=== PATIENT | female | born 1985 | race Caucasian/White ===

== ENCOUNTER 2018-09-19 11:08 | Emergency (ER) | payer MEDICAID ==
[~2018-09-19] VITALS: Ht 157.5 cm; Wt 56.8 kg
[2018-09-19 11:28] LABS: GLUCOSE,POINT OF CARE 84 MG/DL (70-110)
[2018-09-19] MEDS ORDERED: PRENATAL PO (11:33)
[2018-09-19] MEDS ORDERED: PROM25 PO (11:35)
[2018-09-19] MEDS ORDERED: PYRI50 PO (11:35)
[2018-09-19] MEDS ORDERED: RANI50VI4 IM (11:35)
[2018-09-19] MEDS ORDERED: SODIUM CHLORIDE 0.9% 1,000 ML IV ONE (14:30)
[2018-09-19 14:42] LABS: BASOPHILS % (AUTO) 0.5 % (0.0-2.0); EOSINOPHILS % (AUTO) 2.7 % (1.0-6.0); HEMATOCRIT 38.3 % (36-46); HEMOGLOBIN 13.5 g/dL (12.0-16.0); LYMPHOCYTES # (AUTO) 1.9 K/uL (1.0-4.8); LYMPHOCYTES % (AUTO) 19.2 % (22.0-44.0); MEAN CORPUSCULAR HEMOGLOBIN 32.4 pg (26.0-34.0); MEAN CORPUSCULAR HGB CONC 35.3 G/dL (31.0-37.0); MEAN CORPUSCULAR VOLUME 92 fL (80-100); MONOCYTES # (AUTO) 0.5 K/uL (0.1-1.0); MONOCYTES % (AUTO) 5.5 % (2.0-9.0); NEUTROPHILS % (AUTO) 72.1 % (40.0-70.0); PLATELET COUNT (AUTO) 242 K/uL (150-450); RED BLOOD CELL COUNT(AUTO) 4.17 MIL/uL (4.00-5.20); RED CELL DISTRIBUTION WIDTH 12.6 % (11.5-14.5)
[2018-09-19 14:55] LABS: ANION GAP 12 mmol/L (8-16); CALCIUM, TOTAL 9.5 mg/dL (8.8-10.5); CARBON DIOXIDE 24 mmol/L (22-29); CHLORIDE 100 mmol/L (98-107); CREATININE 0.47 mg/dL (0.60-1.30); GLOMERULAR FILTR. RATE CALC > 60 mL/min (>60); GLUCOSE,RANDOM 77 mg/dL (70-110); POTASSIUM 3.9 mmol/L (3.5-5.1); SODIUM SERUM 136 mmol/L (136-145); UREA NITROGEN, BLOOD 12 mg/dL (7-18)
[2018-09-19 14:56] LABS: AMPHET/METH SCREEN,URINE NEGATIVE (NEGATIVE); BARBITURATE SCREEN, URINE NEGATIVE (NEGATIVE); BENZODIAZEPINES SCREEN,URINE NEGATIVE (NEGATIVE); CANNABINOID SCREEN,URINE NEGATIVE (NEGATIVE); COCAINE SCREEN,URINE NEGATIVE (NEGATIVE); METHADONE SCREEN, URINE NEGATIVE (NEGATIVE); OPIATE SCREEN,URINE NEGATIVE (NEGATIVE); PHENCYCLIDINE SCREEN,URINE NEGATIVE (NEGATIVE)
[2018-09-19 15:00] LABS: INR 0.9 (0.9-1.1); PROTHROMBIN TIME 9.2 SEC (9.4-11.6)
[2018-09-19 15:02] LABS: ALANINE AMINOTRANSFERASE 28 U/L (12-78); ALBUMIN 3.7 g/dL (3.4-5.0); ALKALINE PHOSPHATASE 52 U/L (46-116); ASPARTATE AMINOTRANSFERASE 19 U/L (15-37); BILIRUBIN,TOTAL 0.4 mg/dL (0.1-1.0); TOTAL PROTEIN, SERUM 8.1 g/dL (6.4-8.2)
[2018-09-19 15:19] LABS: APPEARANCE,URINE CLEAR (CLEAR); BILIRUBIN,URINE NEGATIVE (NEGATIVE); GLUCOSE, URINE (UA) NEGATIVE (NEGATIVE); KETONES,URINE NEGATIVE (NEGATIVE); LEUKOCYTE ESTERASE ,URINE NEGATIVE (NEGATIVE); NITRATE,URINE NEGATIVE (NEGATIVE); OCCULT BLOOD,URINE NEGATIVE (NEGATIVE); PROTEIN,URINE NEGATIVE (NEGATIVE); UROBILINOGEN,URINE 0.2 mg/dL (<=1.0)
[2018-09-19 15:31] LABS: BACTERIA,URINE None Seen /HPF (None Seen); RBC,URINE None Seen /HPF (0-2); SQUAMOUS EPITHELIAL CELL,UR Few /LPF (None Seen); WBC,URINE None Seen /HPF (0-5)
[2018-09-19 16:57] LABS: INFLUENZA TYPE A NEGATIVE FOR TYPE A (NEGATIVE); INFLUENZA TYPE B NEGATIVE FOR TYPE B (NEGATIVE)
[2018-09-19 17:09] VITALS: BP 136/66
== END 2018-09-19 17:34 | disposition left against medical advice (07) ==
LOC: EMS 11:10
DX: O26.892 Other specified pregnancy related conditions, second trimester (principal); R42 Dizziness and giddiness; R51 Headache; R10.30 Lower abdominal pain, unspecified; Z88.0 Allergy status to penicillin; Z88.1 Allergy status to other antibiotic agents; Z79.899 Other long term (current) drug therapy
CPT/HCPCS: 36415; 76700; 76805; 80053; 80307; 81001; 82962; 85025; 85610; 85730; 87804; 93005; 96360; 96361; 99284; J7030

== ENCOUNTER 2018-12-10 15:25 | Observation (INO) | payer OTHER ==
[~2018-12-10 15:25] MED LIST: PRENATAL PO; PROM25 PO; PYRI50 PO; RANI50VI4 IM
[2018-12-10 16:43] LABS: GLUCOMETER DEV NAME(LOC) 4S.; GLUCOSE,POINT OF CARE 117 MG/DL (70-110)
[2018-12-10 17:10] VITALS: BP 134/82
== END 2018-12-10 17:35 | disposition home or self-care (01) ==
LOC: 4S 15:25 → UNDOADMOB 15:25
PROVIDERS: ADMIT Obstetrics & Gynecology; ATTEND Obstetrics & Gynecology
DX: O24.419 Gestational diabetes mellitus in pregnancy, unspecified control (principal); Z3A.29 29 weeks gestation of pregnancy
CPT/HCPCS: 82962; G0378

== ENCOUNTER 2019-01-25 09:37 | Observation (INO) | payer OTHER ==
[~2019-01-25] VITALS: Ht 160 cm; Wt 90.3 kg
== END 2019-01-25 11:45 | disposition home or self-care (01) ==
LOC: 4S 09:44
PROVIDERS: ADMIT Obstetrics & Gynecology; ATTEND Obstetrics & Gynecology
DX: O24.419 Gestational diabetes mellitus in pregnancy, unspecified control (principal); Z3A.34 34 weeks gestation of pregnancy
CPT/HCPCS: 81002; G0378

== ENCOUNTER 2019-01-28 13:05 | Observation (INO) | payer OTHER ==
[~2019-01-28] VITALS: Ht 160 cm; Wt 90.3 kg
[2019-01-28 14:14] LABS: GLUCOMETER DEV NAME(LOC) 4S.; GLUCOSE,POINT OF CARE 120 MG/DL (70-110)
[2019-01-28 15:48] VITALS: BP 131/82
[2019-01-28] MEDS ORDERED: INSU100V3 SQ ×2 (18:19→18:20)
[2019-01-28] MEDS ORDERED: NPH,100V SQ ×2 (18:19)
== END 2019-01-28 15:00 | disposition home or self-care (01) ==
LOC: 4S 13:05
PROVIDERS: ADMIT Obstetrics & Gynecology; ATTEND Obstetrics & Gynecology
DX: O24.419 Gestational diabetes mellitus in pregnancy, unspecified control (principal); Z3A.34 34 weeks gestation of pregnancy
CPT/HCPCS: 81002; 82962; G0378

== ENCOUNTER 2019-02-25 16:38 | Emergency (ER) | payer OTHER ==
[~2019-02-25] VITALS: Ht 160 cm; Wt 86.4 kg
[~2019-02-25 16:38] MED LIST changes: +DSS100 PO; +FERR-89 PO; +IBUP-2071 PO; +PERCT PO; +PREN1TAB80 PO; -PRENATAL PO; -PROM25 PO; -PYRI50 PO; -RANI50VI4 IM
[2019-02-25] MEDS ORDERED: SODIUM CHLORIDE 0.9% 1,000 ML IV ONE ×2 (17:30→19:30)
[2019-02-25] MEDS ORDERED: ACETAMINOPHEN 325 MG TABLET PO ONE ×2 (17:30→18:15)
[2019-02-25 18:53] LABS: APPEARANCE,URINE CLEAR (CLEAR); BILIRUBIN,URINE NEGATIVE (NEGATIVE); GLUCOSE, URINE (UA) NEGATIVE (NEGATIVE); KETONES,URINE NEGATIVE (NEGATIVE); LEUKOCYTE ESTERASE ,URINE NEGATIVE (NEGATIVE); NITRATE,URINE NEGATIVE (NEGATIVE); OCCULT BLOOD,URINE TRACE (NEGATIVE); PH,URINE 6.5 (5.0-8.0); PROTEIN,URINE NEGATIVE (NEGATIVE); UROBILINOGEN,URINE 0.2 mg/dL (<=1.0)
[2019-02-25 18:54] LABS: BASOPHILS % (AUTO) 0.4 % (0.0-2.0); HEMATOCRIT 26.6 % (36-46); HEMOGLOBIN 8.9 g/dL (12.0-16.0); LYMPHOCYTES # (AUTO) 1.3 K/uL (1.0-4.8); LYMPHOCYTES % (AUTO) 11.5 % (22.0-44.0); MEAN CORPUSCULAR HEMOGLOBIN 31.5 pg (26.0-34.0); MEAN CORPUSCULAR HGB CONC 33.3 G/dL (31.0-37.0); MEAN CORPUSCULAR VOLUME 95 fL (80-100); MONOCYTES # (AUTO) 0.8 K/uL (0.1-1.0); MONOCYTES % (AUTO) 7.3 % (2.0-9.0); NEUTROPHILS # (AUTO) 8.8 K/uL (1.8-7.7); NEUTROPHILS % (AUTO) 78.8 % (40.0-70.0); PLATELET COUNT (AUTO) 319 K/uL (150-450); RED BLOOD CELL COUNT(AUTO) 2.81 MIL/uL (4.00-5.20); RED CELL DISTRIBUTION WIDTH 13.8 % (11.5-14.5)
[2019-02-25 19:02] LABS: BACTERIA,URINE None Seen /HPF (None Seen); RBC,URINE 0-2 /HPF (0-2); SQUAMOUS EPITHELIAL CELL,UR Few /LPF (None Seen); WBC,URINE 0-2 /HPF (0-5)
[2019-02-25 19:03] LABS: TRANSITIONAL EPI CELLS,URINE Rare /LPF (None Seen)
[2019-02-25 19:06] LABS: ANION GAP 10 mmol/L (8-16); CALCIUM, TOTAL 8.5 mg/dL (8.8-10.5); CARBON DIOXIDE 25 mmol/L (22-29); CHLORIDE 104 mmol/L (98-107); CREATININE 0.78 mg/dL (0.60-1.30); GLOMERULAR FILTR. RATE CALC > 60 mL/min (>60); GLUCOSE,RANDOM 79 mg/dL (70-110); SODIUM SERUM 139 mmol/L (136-145); UREA NITROGEN, BLOOD 10 mg/dL (7-18)
[2019-02-25 19:12] LABS: ALANINE AMINOTRANSFERASE 49 U/L (12-78); ALBUMIN 2.3 g/dL (3.4-5.0); ALKALINE PHOSPHATASE 116 U/L (46-116); ASPARTATE AMINOTRANSFERASE 22 U/L (15-37); BILIRUBIN,TOTAL 0.5 mg/dL (0.1-1.0); TOTAL PROTEIN, SERUM 6.8 g/dL (6.4-8.2)
[2019-02-25 19:14] LABS: LACTIC ACID 0.7 mmol/L (0.4-2.0)
[2019-02-25] MEDS ORDERED: CLINDAMYCIN 600 MG/D5% WATER 50 ML IV ONE (19:30)
[2019-02-25] MEDS ORDERED: KETOROLAC TROMETHAMINE 30 MG/ML VIAL IVP ONE (20:00)
[2019-02-25 21:51] VITALS: BP 132/76
== END 2019-02-25 21:54 | disposition home or self-care (01) ==
LOC: EMS 16:40
DX: L08.9 Local infection of the skin and subcutaneous tissue, unspecified (principal); R10.30 Lower abdominal pain, unspecified; Z88.1 Allergy status to other antibiotic agents
CPT/HCPCS: 36415; 71045; 80053; 81001; 83605; 85025; 87040; 96365; 96375; 99285; J1885; J3490; J7030

== ENCOUNTER 2020-07-10 09:43 | Emergency (ER) | payer OTHER ==
[~2020-07-10] VITALS: Ht 170.2 cm; Wt 77.3 kg
[2020-07-10] MEDS ORDERED: PROZ10 PO (10:12)
[2020-07-10] MEDS ORDERED: LAMO100 PO (10:12)
[2020-07-10] MEDS ORDERED: BUSP10TA23 PO (10:12)
[2020-07-10] MEDS ORDERED: ACETAMINOPHEN 500 MG TABLET PO ONE (11:15)
[2020-07-10] MEDS ORDERED: ONDANSETRON HCL 4 MG/2 ML VIAL IVP ONE (11:15)
[2020-07-10] MEDS ORDERED: SODIUM CHLORIDE 0.9% 500 ML IV ONE (11:15)
[2020-07-10 11:38] LABS: BASOPHILS % (AUTO) 1.1 % (0.0-2.0); EOSINOPHILS % (AUTO) 1.5 % (1.0-6.0); HEMATOCRIT 42.5 % (36-46); HEMOGLOBIN 14.8 g/dL (12.0-16.0); LYMPHOCYTES # (AUTO) 1.1 K/uL (1.0-4.8); LYMPHOCYTES % (AUTO) 20.9 % (22.0-44.0); MEAN CORPUSCULAR HEMOGLOBIN 32.8 pg (26.0-34.0); MEAN CORPUSCULAR HGB CONC 34.7 G/dL (31.0-37.0); MEAN CORPUSCULAR VOLUME 94 fL (80-100); MONOCYTES # (AUTO) 0.4 K/uL (0.1-1.0); MONOCYTES % (AUTO) 7.5 % (2.0-9.0); NEUTROPHILS # (AUTO) 3.7 K/uL (1.8-7.7); PLATELET COUNT (AUTO) 302 K/uL (150-450); RED BLOOD CELL COUNT(AUTO) 4.51 MIL/uL (4.00-5.20); RED CELL DISTRIBUTION WIDTH 12.3 % (11.5-14.5)
[2020-07-10 11:55] LABS: ANION GAP 5 mmol/L (8-16); CALCIUM, TOTAL 9.5 mg/dL (8.8-10.5); CARBON DIOXIDE 31 mmol/L (22-29); CHLORIDE 95 mmol/L (98-107); CREATININE 0.85 mg/dL (0.60-1.30); GLOMERULAR FILTR. RATE CALC > 60 mL/min (>60); GLUCOSE,RANDOM 118 mg/dL (70-110); POTASSIUM 3.7 mmol/L (3.5-5.1); SODIUM SERUM 131 mmol/L (136-145); UREA NITROGEN, BLOOD 11 mg/dL (7-18)
[2020-07-10 12:18] LABS: ALANINE AMINOTRANSFERASE 58 U/L (12-78); ALBUMIN 4.3 g/dL (3.4-5.0); ALKALINE PHOSPHATASE 70 U/L (46-116); ASPARTATE AMINOTRANSFERASE 51 U/L (15-37); BILIRUBIN,TOTAL 1.6 mg/dL (0.1-1.0); CREATINE KINASE, TOTAL ONLY 100 U/L (26-192); HCG,QUANTITATIVE < 1 mIU/mL (0-6); TOTAL PROTEIN, SERUM 8.7 g/dL (6.4-8.2)
[2020-07-10] MEDS ORDERED: METOCLOPRAMIDE HCL 5 MG/ML 2 ML VIAL IVP ONE (12:45)
[2020-07-10] MEDS ORDERED: DiphenhydrAMINE HCL 50 MG/ML VIAL IVP ONE (12:45)
[2020-07-10 12:46] LABS: APPEARANCE,URINE CLEAR (CLEAR); BILIRUBIN,URINE NEGATIVE (NEGATIVE); GLUCOSE, URINE (UA) NEGATIVE (NEGATIVE); KETONES,URINE NEGATIVE (NEGATIVE); LEUKOCYTE ESTERASE ,URINE NEGATIVE (NEGATIVE); NITRATE,URINE NEGATIVE (NEGATIVE); OCCULT BLOOD,URINE SMALL (NEGATIVE); PROTEIN,URINE TRACE (NEGATIVE)
[2020-07-10 12:52] LABS: AMPHET/METH SCREEN,URINE NEGATIVE (NEGATIVE); BARBITURATE SCREEN, URINE NEGATIVE (NEGATIVE); BENZODIAZEPINES SCREEN,URINE NEGATIVE (NEGATIVE); CANNABINOID SCREEN,URINE POSITIVE (NEGATIVE); COCAINE SCREEN,URINE NEGATIVE (NEGATIVE); METHADONE SCREEN, URINE NEGATIVE (NEGATIVE); OPIATE SCREEN,URINE NEGATIVE (NEGATIVE)
[2020-07-10 12:53] LABS: BACTERIA,URINE None Seen /HPF (None Seen); SQUAMOUS EPITHELIAL CELL,UR Moderate /LPF (None Seen); WBC,URINE 0-2 /HPF (0-5)
[2020-07-10 12:54] LABS: PHENCYCLIDINE SCREEN,URINE NEGATIVE (NEGATIVE)
[2020-07-10 14:19] VITALS: BP 143/101
== END 2020-07-10 14:24 | disposition home or self-care (01) ==
LOC: EMS 09:49
DX: R11.2 Nausea with vomiting, unspecified (principal); F31.9 Bipolar disorder, unspecified; F17.210 Nicotine dependence, cigarettes, uncomplicated; Z88.0 Allergy status to penicillin; Z88.1 Allergy status to other antibiotic agents; Z79.899 Other long term (current) drug therapy
CPT/HCPCS: 36415; 74176; 80053; 80307; 81001; 82550; 84702; 85025; 96361; 96374; 96375; 99285; G0480; J1200; J2405; J2765; J7040

== ENCOUNTER 2020-07-20 12:57 | Inpatient (IN) | payer MEDICAID, OTHER ==
[~2020-07-20] VITALS: Ht 157.5 cm; Wt 63.0 kg
[~2020-07-20 12:57] MED LIST changes: +BUSP10TA23 PO; -DSS100 PO; -FERR-89 PO; -IBUP-2071 PO; +LAMO100 PO; -PERCT PO; -PREN1TAB80 PO; +PROZ10 PO
[2020-07-20 14:26] LABS: AMPHET/METH SCREEN,URINE NEGATIVE (NEGATIVE); BARBITURATE SCREEN, URINE NEGATIVE (NEGATIVE); BENZODIAZEPINES SCREEN,URINE NEGATIVE (NEGATIVE); CANNABINOID SCREEN,URINE POSITIVE (NEGATIVE); COCAINE SCREEN,URINE NEGATIVE (NEGATIVE); METHADONE SCREEN, URINE NEGATIVE (NEGATIVE); OPIATE SCREEN,URINE NEGATIVE (NEGATIVE)
[2020-07-20 14:27] LABS: EOSINOPHILS % (AUTO) 0.2 % (1.0-6.0); HEMATOCRIT 44.4 % (36-46); HEMOGLOBIN 15.5 g/dL (12.0-16.0); LYMPHOCYTES # (AUTO) 1.6 K/uL (1.0-4.8); LYMPHOCYTES % (AUTO) 17.2 % (22.0-44.0); MEAN CORPUSCULAR HEMOGLOBIN 33.4 pg (26.0-34.0); MEAN CORPUSCULAR VOLUME 96 fL (80-100); MONOCYTES # (AUTO) 0.6 K/uL (0.1-1.0); MONOCYTES % (AUTO) 6.1 % (2.0-9.0); NEUTROPHILS # (AUTO) 6.9 K/uL (1.8-7.7); NEUTROPHILS % (AUTO) 75.5 % (40.0-70.0); PLATELET COUNT (AUTO) 306 K/uL (150-450); RED BLOOD CELL COUNT(AUTO) 4.65 MIL/uL (4.00-5.20); RED CELL DISTRIBUTION WIDTH 13.5 % (11.5-14.5)
[2020-07-20 14:28] LABS: PHENCYCLIDINE SCREEN,URINE NEGATIVE (NEGATIVE)
[2020-07-20 14:42] LABS: ANION GAP 10 mmol/L (8-16); CALCIUM, TOTAL 9.2 mg/dL (8.8-10.5); CARBON DIOXIDE 29 mmol/L (22-29); CHLORIDE 98 mmol/L (98-107); CREATININE 1.13 mg/dL (0.60-1.30); GLOMERULAR FILTR. RATE CALC 55 mL/min (>60); GLUCOSE,RANDOM 125 mg/dL (70-110); POTASSIUM 3.5 mmol/L (3.5-5.1); SODIUM SERUM 137 mmol/L (136-145); UREA NITROGEN, BLOOD 13 mg/dL (7-18)
[2020-07-20 14:48] LABS: ALANINE AMINOTRANSFERASE 38 U/L (12-78); ALBUMIN 4.3 g/dL (3.4-5.0); ALKALINE PHOSPHATASE 69 U/L (46-116); ASPARTATE AMINOTRANSFERASE 40 U/L (15-37); BILIRUBIN,TOTAL 1.4 mg/dL (0.1-1.0); TOTAL PROTEIN, SERUM 8.4 g/dL (6.4-8.2)
[2020-07-20 15:06] LABS: HCG,QUANTITATIVE < 1 mIU/mL (0-6)
[2020-07-20] MEDS ORDERED: LORazepam 2 MG TABLET PO ONE (16:15)
[2020-07-20 16:24] LABS: SALICYLATE < 2.8 mg/dL (2.8-20.0)
[2020-07-20 16:27] LABS: ACETAMINOPHEN < 2 mcg/mL (10-30)
[2020-07-20] MEDS ORDERED: SODIUM CHLORIDE 0.9% 1,000 ML IV ONE (16:45)
[2020-07-20 16:53] LABS: COVID AG,FIA SOURCE NASOPHARYNGEAL
[2020-07-20] MEDS ORDERED: LORazepam 2 MG TABLET PO PRN (17:15)
[2020-07-20] MEDS ORDERED: ONDANSETRON HCL 4 MG/2 ML VIAL IVP ONE (17:45)
[2020-07-20] MEDS ORDERED: CloNIDine HCL 0.2 MG TABLET PO ONE (21:45)
[2020-07-20] MEDS ORDERED: LABETALOL HCL 100 MG TABLET PO ONE (21:45)
[2020-07-21] MEDS: ZOLPIDEM TARTRATE 10 MG TABLET PO PRN ×2 (00:27→20:17)
[2020-07-21] MEDS ORDERED: PNEUMOCOCCAL VACCINE POLYVALENT 0.5 ML VIAL [PPSV23] IM ONE (04:15)
[2020-07-21] MEDS ORDERED: INFLUENZA VIRUS VACCINE QVS 2020-21 (6MO+)/PF 60 MCG/0.5 ML SYRINGE IM ONE (04:15)
[2020-07-21 08:21] LABS: CHOL/HDL RATIO 1.8 (3.9-5.7)
[2020-07-21 09:28] VITALS: BP 126/83
[2020-07-21] MEDS ORDERED: CYANOCOBALAMIN 1,000 MCG/ML VIAL IM ONE (10:00)
[2020-07-21] MEDS: DIVALPROEX SODIUM 500 MG DR TABLET PO SCH ×2 (10:23→20:17)
[2020-07-21] MEDS: FOLIC ACID 1 MG TABLET PO SCH (10:23)
[2020-07-21] MEDS: FLUoxetine HCL 20 MG CAPSULE PO SCH (10:24)
[2020-07-21] MEDS: MULTIVITAMINS WITH MINERALS, THERAPEUTIC TABLET PO SCH (10:24)
[2020-07-21] MEDS: THIAMINE 100 MG TABLET PO SCH ×2 (10:27→16:53)
[2020-07-21 10:28] VITALS: BP 126/83
[2020-07-21] MEDS: IBUPROFEN 400 MG TABLET PO PRN (10:28)
[2020-07-21 14:36] VITALS: BP 126/83
[2020-07-21 16:14] VITALS: BP 145/94
[2020-07-21] MEDS ORDERED: MAGNESIUM HYDROXIDE SUSPENSION 30 ML UDCUP PO PRN (16:15)
[2020-07-21] MEDS ORDERED: MAG HYDROX/AL HYDROX/SIMETH ES 30 ML SUSPENSION UDCUP PO PRN (16:15)
[2020-07-21] MEDS ORDERED: IBUPROFEN 400 MG TABLET PO PRN (16:15)
[2020-07-21] MEDS ORDERED: GuaiFENesin/D-METHORPHAN [SUGAR-FREE] 200-20MG/10 ML SYRUP UDCUP PO PRN (16:15)
[2020-07-21] MEDS ORDERED: CloNIDine HCL 0.1 MG TABLET PO PRN (16:15)
[2020-07-21] MEDS ORDERED: ALBUTEROL SULFATE HFA 90 MCG/PUFF 8 GM INHALER IH PRN (16:15)
[2020-07-21] MEDS ORDERED: PETROLATUM,WHITE 28 GM JELLY TP PRN (16:15)
[2020-07-21] MEDS ORDERED: DOCUSATE SODIUM 100 MG CAPSULE PO PRN (16:15)
[2020-07-21] MEDS ORDERED: LOPERAMIDE HCL 2 MG CAPSULE PO PRN (16:15)
[2020-07-21] MEDS ORDERED: ONDANSETRON HCL 4 MG TABLET PO PRN (16:15)
[2020-07-21] MEDS: LORazepam 2 MG TABLET PO PRN (16:54)
[2020-07-21] MEDS: QUEtiapine FUMARATE 200 MG TABLET PO SCH (20:17)
[2020-07-21 21:51] VITALS: BP 131/83
[2020-07-21 22:49] VITALS: BP 134/85
[2020-07-22 02:30] VITALS: BP 149/87
[2020-07-22 06:33] VITALS: BP 148/90
[2020-07-22] MEDS: LORazepam 2 MG TABLET PO PRN ×2 (06:42→18:43)
[2020-07-22 08:13] LABS: EOSINOPHILS % (AUTO) 2.3 % (1.0-6.0); HEMATOCRIT 34.9 % (36-46); HEMOGLOBIN 12.2 g/dL (12.0-16.0); LYMPHOCYTES # (AUTO) 2.4 K/uL (1.0-4.8); LYMPHOCYTES % (AUTO) 40.3 % (22.0-44.0); MEAN CORPUSCULAR HEMOGLOBIN 33.8 pg (26.0-34.0); MEAN CORPUSCULAR VOLUME 97 fL (80-100); MONOCYTES # (AUTO) 0.4 K/uL (0.1-1.0); MONOCYTES % (AUTO) 6.2 % (2.0-9.0); NEUTROPHILS % (AUTO) 50.2 % (40.0-70.0); PLATELET COUNT (AUTO) 225 K/uL (150-450); RED BLOOD CELL COUNT(AUTO) 3.62 MIL/uL (4.00-5.20); RED CELL DISTRIBUTION WIDTH 13.2 % (11.5-14.5)
[2020-07-22 08:29] VITALS: BP 134/96
[2020-07-22 08:35] LABS: HEMOGLOBIN A1C 5.8 % (3.8-5.6)
[2020-07-22 08:47] LABS: ALANINE AMINOTRANSFERASE 25 U/L (12-78); ALBUMIN 3.1 g/dL (3.4-5.0); ALKALINE PHOSPHATASE 44 U/L (46-116); ANION GAP 8 mmol/L (8-16); ASPARTATE AMINOTRANSFERASE 19 U/L (15-37); BILIRUBIN,TOTAL 0.8 mg/dL (0.1-1.0); CALCIUM, TOTAL 8.2 mg/dL (8.8-10.5); CARBON DIOXIDE 28 mmol/L (22-29); CHLORIDE 102 mmol/L (98-107); CHOL/HDL RATIO 2.2 (3.9-5.7); CHOLESTEROL 124 mg/dL (131-200); CREATININE 0.81 mg/dL (0.60-1.30); GLOMERULAR FILTR. RATE CALC > 60 mL/min (>60); GLUCOSE,RANDOM 99 mg/dL (70-110); HDL CHOLESTEROL 57 mg/dL (40-60); LDL CHOL (CALC.) 32 mg/dL (0-130); POTASSIUM 4.2 mmol/L (3.5-5.1); SODIUM SERUM 138 mmol/L (136-145); THYROID STIMULATING HORMONE 1.07 uIU/mL (0.36-3.74); TOTAL PROTEIN, SERUM 6.2 g/dL (6.4-8.2); TRIGLYCERIDES 173 mg/dL (15-150); UREA NITROGEN, BLOOD 10 mg/dL (7-18)
[2020-07-22] MEDS: LORazepam 2 MG TABLET PO SCH ×4 (09:48→20:21)
[2020-07-22] MEDS: DIVALPROEX SODIUM 500 MG DR TABLET PO SCH ×2 (09:49→20:21)
[2020-07-22] MEDS: FOLIC ACID 1 MG TABLET PO SCH (09:49)
[2020-07-22] MEDS: MULTIVITAMINS WITH MINERALS, THERAPEUTIC TABLET PO SCH (09:49)
[2020-07-22] MEDS: FLUoxetine HCL 20 MG CAPSULE PO SCH (09:49)
[2020-07-22] MEDS: THIAMINE 100 MG TABLET PO SCH ×2 (09:50→16:08)
[2020-07-22 12:41] VITALS: BP 123/61
[2020-07-22] MEDS ORDERED: *NON-FORMULARY MED [ENTER DRUG, DOSE, FREQ IN COMMENTS] CLINICAL ONE (14:45)
[2020-07-22 17:33] VITALS: BP 148/97
[2020-07-22] MEDS: ZOLPIDEM TARTRATE 10 MG TABLET PO PRN (20:21)
[2020-07-22] MEDS: QUEtiapine FUMARATE 200 MG TABLET PO SCH (20:29)
[2020-07-23 02:11] VITALS: BP 140/89
[2020-07-23 05:37] VITALS: BP 140/89
[2020-07-23] MEDS: LORazepam 2 MG TABLET PO PRN (05:49)
[2020-07-23] MEDS: MULTIVITAMINS WITH MINERALS, THERAPEUTIC TABLET PO SCH (08:01)
[2020-07-23] MEDS: LORazepam 2 MG TABLET PO SCH ×4 (08:01→20:07)
[2020-07-23] MEDS: FOLIC ACID 1 MG TABLET PO SCH (08:02)
[2020-07-23] MEDS: BLISOVI FE PO SCH (08:02)
[2020-07-23] MEDS: DIVALPROEX SODIUM 500 MG DR TABLET PO SCH ×2 (08:02→20:07)
[2020-07-23] MEDS: FLUoxetine HCL 20 MG CAPSULE PO SCH (08:02)
[2020-07-23] MEDS: THIAMINE 100 MG TABLET PO SCH ×2 (08:02→17:32)
[2020-07-23 08:05] VITALS: BP 123/70
[2020-07-23] MEDS ORDERED: NORETHINDRONE ACETATE 5 MG TABLET PO SCH (09:00)
[2020-07-23 11:13] VITALS: BP 123/70
[2020-07-23] MEDS: IBUPROFEN 400 MG TABLET PO PRN (13:12)
[2020-07-23 16:05] VITALS: BP 142/88
[2020-07-23 16:09] VITALS: BP 142/88
[2020-07-23] MEDS: QUEtiapine FUMARATE 200 MG TABLET PO SCH (20:07)
[2020-07-23] MEDS: ZOLPIDEM TARTRATE 10 MG TABLET PO PRN (22:00)
[2020-07-24 05:41] VITALS: BP 137/91
[2020-07-24] MEDS: HALOPERIDOL 5 MG TABLET PO PRN (05:44)
[2020-07-24] MEDS: LORazepam 1 MG TABLET PO PRN (05:44)
[2020-07-24 05:48] VITALS: BP 137/91
[2020-07-24 08:18] LABS: BILIRUBIN,URINE NEGATIVE (NEGATIVE); GLUCOSE, URINE (UA) NEGATIVE (NEGATIVE); KETONES,URINE TRACE mg/dL (NEGATIVE); LEUKOCYTE ESTERASE ,URINE NEGATIVE (NEGATIVE); NITRATE,URINE NEGATIVE (NEGATIVE); PH,URINE 7.5 (5.0-8.0); PROTEIN,URINE NEGATIVE (NEGATIVE)
[2020-07-24 08:24] LABS: AMPHET/METH SCREEN,URINE NEGATIVE (NEGATIVE); BARBITURATE SCREEN, URINE NEGATIVE (NEGATIVE); BENZODIAZEPINES SCREEN,URINE NEGATIVE (NEGATIVE); CANNABINOID SCREEN,URINE POSITIVE (NEGATIVE); COCAINE SCREEN,URINE NEGATIVE (NEGATIVE); METHADONE SCREEN, URINE NEGATIVE (NEGATIVE); OPIATE SCREEN,URINE NEGATIVE (NEGATIVE)
[2020-07-24 08:25] LABS: PHENCYCLIDINE SCREEN,URINE NEGATIVE (NEGATIVE)
[2020-07-24 08:29] LABS: OCCULT BLOOD,URINE TRACE (NEGATIVE)
[2020-07-24 08:30] LABS: APPEARANCE,URINE HAZY (CLEAR); BACTERIA,URINE None Seen /HPF (None Seen); CALCIUM OXALATE CRYSTALS,UR Few /LPF (None Seen); RBC,URINE 0-2 /HPF (0-2); SQUAMOUS EPITHELIAL CELL,UR Moderate /LPF (None Seen); WBC,URINE None Seen /HPF (0-5)
[2020-07-24 08:36] VITALS: BP 110/61
[2020-07-24 08:38] VITALS: BP 110/61
[2020-07-24] MEDS: MULTIVITAMINS WITH MINERALS, THERAPEUTIC TABLET PO SCH (08:59)
[2020-07-24] MEDS: BLISOVI FE PO SCH (08:59)
[2020-07-24] MEDS: FLUoxetine HCL 20 MG CAPSULE PO SCH (08:59)
[2020-07-24] MEDS: DIVALPROEX SODIUM 500 MG DR TABLET PO SCH ×2 (08:59→20:04)
[2020-07-24] MEDS: THIAMINE 100 MG TABLET PO SCH ×2 (08:59→16:15)
[2020-07-24] MEDS: LORazepam 1 MG TABLET PO SCH ×4 (08:59→20:04)
[2020-07-24] MEDS: FOLIC ACID 1 MG TABLET PO SCH (08:59)
[2020-07-24 16:00] VITALS: BP 127/82
[2020-07-24 16:17] VITALS: BP 127/82
[2020-07-24] MEDS: QUEtiapine FUMARATE 200 MG TABLET PO SCH (20:04)
[2020-07-24] MEDS: ZOLPIDEM TARTRATE 10 MG TABLET PO PRN (20:52)
[2020-07-25] MEDS: LORazepam 1 MG TABLET PO PRN ×4 (03:04→18:00)
[2020-07-25 03:51] VITALS: BP 120/78
[2020-07-25 05:22] VITALS: BP 120/78
[2020-07-25 08:48] VITALS: BP 118/72
[2020-07-25] MEDS: DIVALPROEX SODIUM 500 MG DR TABLET PO SCH ×2 (08:54→21:02)
[2020-07-25] MEDS: FOLIC ACID 1 MG TABLET PO SCH (08:54)
[2020-07-25] MEDS: MULTIVITAMINS WITH MINERALS, THERAPEUTIC TABLET PO SCH (08:55)
[2020-07-25] MEDS: FLUoxetine HCL 20 MG CAPSULE PO SCH (08:55)
[2020-07-25] MEDS: THIAMINE 100 MG TABLET PO SCH ×2 (08:56→16:25)
[2020-07-25] MEDS: BLISOVI FE PO SCH (09:12)
[2020-07-25 10:59] VITALS: BP 118/72
[2020-07-25] MEDS: BusPIRone HCL 5 MG TABLET PO SCH ×3 (12:58→21:02)
[2020-07-25 16:19] VITALS: BP 128/90
[2020-07-25] MEDS: NICOTINE 14 MG/24 HOUR PATCH TD PRN (16:30)
[2020-07-25 18:46] VITALS: BP 128/90
[2020-07-25] MEDS: QUEtiapine FUMARATE 200 MG TABLET PO SCH (21:02)
[2020-07-25] MEDS: ZOLPIDEM TARTRATE 10 MG TABLET PO PRN (21:02)
[2020-07-26 02:44] VITALS: BP 122/88
[2020-07-26 04:41] VITALS: BP 122/84
[2020-07-26 08:05] VITALS: BP 114/76
[2020-07-26] MEDS: BusPIRone HCL 5 MG TABLET PO SCH ×3 (08:13→20:23)
[2020-07-26] MEDS: DIVALPROEX SODIUM 500 MG DR TABLET PO SCH ×2 (08:13→20:24)
[2020-07-26] MEDS: FLUoxetine HCL 20 MG CAPSULE PO SCH (08:13)
[2020-07-26] MEDS: FOLIC ACID 1 MG TABLET PO SCH (08:14)
[2020-07-26] MEDS: MULTIVITAMINS WITH MINERALS, THERAPEUTIC TABLET PO SCH (08:14)
[2020-07-26] MEDS: THIAMINE 100 MG TABLET PO SCH ×2 (08:14→16:29)
[2020-07-26 08:30] VITALS: BP 114/76
[2020-07-26] MEDS: HALOPERIDOL 5 MG TABLET PO PRN ×2 (08:56→16:31)
[2020-07-26] MEDS: BLISOVI FE PO SCH (09:04)
[2020-07-26 16:04] VITALS: BP 120/73
[2020-07-26 16:08] VITALS: BP 120/73
[2020-07-26] MEDS: HydrOXYzine PAMOATE 50 MG CAPSULE PO PRN (16:31)
[2020-07-26] MEDS: NICOTINE 14 MG/24 HOUR PATCH TD PRN (18:10)
[2020-07-26] MEDS: QUEtiapine FUMARATE 200 MG TABLET PO SCH (20:24)
[2020-07-26] MEDS: ZOLPIDEM TARTRATE 10 MG TABLET PO PRN (20:30)
[2020-07-27 04:43] VITALS: BP 114/62
[2020-07-27 08:16] VITALS: BP 116/66
[2020-07-27] MEDS: DIVALPROEX SODIUM 500 MG DR TABLET PO SCH ×2 (08:23→20:10)
[2020-07-27] MEDS: BusPIRone HCL 5 MG TABLET PO SCH ×3 (08:23→20:10)
[2020-07-27] MEDS: THIAMINE 100 MG TABLET PO SCH ×2 (08:24→16:09)
[2020-07-27] MEDS: FLUoxetine HCL 20 MG CAPSULE PO SCH (08:24)
[2020-07-27] MEDS: MULTIVITAMINS WITH MINERALS, THERAPEUTIC TABLET PO SCH (08:24)
[2020-07-27] MEDS: FOLIC ACID 1 MG TABLET PO SCH (08:24)
[2020-07-27] MEDS: HALOPERIDOL 5 MG TABLET PO PRN (08:25)
[2020-07-27] MEDS: BLISOVI FE PO SCH (08:29)
[2020-07-27 08:40] VITALS: BP 116/66
[2020-07-27] MEDS: ACETAMINOPHEN 325 MG TABLET PO PRN ×2 (08:40→18:29)
[2020-07-27] MEDS ORDERED: LURASIDONE HCL 40 MG TABLET PO SCH (17:00)
[2020-07-27 18:05] VITALS: BP 101/66
[2020-07-27] MEDS: HydrOXYzine PAMOATE 50 MG CAPSULE PO PRN (18:48)
[2020-07-27] MEDS: ZOLPIDEM TARTRATE 10 MG TABLET PO PRN (20:12)
[2020-07-28 02:28] VITALS: BP 100/69
[2020-07-28 08:16] VITALS: BP 120/84
[2020-07-28] MEDS ORDERED: LORazepam 2 MG TABLET PO ONE (08:30)
[2020-07-28] MEDS: OMEGA-3/DHA/EPA/FISH OIL 1,000 MG CAPSULE PO SCH (09:07)
[2020-07-28] MEDS: FLUoxetine HCL 20 MG CAPSULE PO SCH (09:07)
[2020-07-28] MEDS: MULTIVITAMINS WITH MINERALS, THERAPEUTIC TABLET PO SCH (09:07)
[2020-07-28] MEDS: THIAMINE 100 MG TABLET PO SCH ×2 (09:07→16:23)
[2020-07-28] MEDS: FOLIC ACID 1 MG TABLET PO SCH (09:07)
[2020-07-28] MEDS: BLISOVI FE PO SCH (09:08)
[2020-07-28] MEDS: DIVALPROEX SODIUM 500 MG DR TABLET PO SCH ×2 (09:08→20:49)
[2020-07-28] MEDS: BusPIRone HCL 5 MG TABLET PO SCH ×3 (09:08→20:48)
[2020-07-28] MEDS: HALOPERIDOL 5 MG TABLET PO PRN (14:22)
[2020-07-28] MEDS: NICOTINE 14 MG/24 HOUR PATCH TD PRN (14:22)
[2020-07-28 16:09] VITALS: BP 123/84
[2020-07-28] MEDS: HydrOXYzine PAMOATE 50 MG CAPSULE PO PRN (18:43)
[2020-07-28] MEDS ORDERED: LORazepam 2 MG/ML VIAL ONE (19:13)
[2020-07-28] MEDS ORDERED: DiphenhydrAMINE HCL 50 MG/ML VIAL ONE (19:13)
[2020-07-28] MEDS ORDERED: HALOPERIDOL LACTATE 5 MG/ML VIAL ONE (19:13)
[2020-07-28] MEDS ORDERED: LORazepam 2 MG/ML VIAL IM ONE (19:15)
[2020-07-28] MEDS ORDERED: DiphenhydrAMINE HCL 50 MG/ML VIAL IM ONE (19:15)
[2020-07-28] MEDS ORDERED: HALOPERIDOL LACTATE 5 MG/ML VIAL IM ONE (19:15)
[2020-07-28] MEDS: QUEtiapine FUMARATE 200 MG TABLET PO SCH (20:56)
[2020-07-29 00:03] VITALS: BP 120/78
[2020-07-29 08:17] VITALS: BP 119/65
[2020-07-29] MEDS: FLUoxetine HCL 20 MG CAPSULE PO SCH (09:09)
[2020-07-29] MEDS: MULTIVITAMINS WITH MINERALS, THERAPEUTIC TABLET PO SCH (09:09)
[2020-07-29] MEDS: OMEGA-3/DHA/EPA/FISH OIL 1,000 MG CAPSULE PO SCH (09:10)
[2020-07-29] MEDS: FOLIC ACID 1 MG TABLET PO SCH (09:10)
[2020-07-29] MEDS: THIAMINE 100 MG TABLET PO SCH ×2 (09:10→16:03)
[2020-07-29] MEDS: DIVALPROEX SODIUM 500 MG DR TABLET PO SCH ×2 (09:10→20:00)
[2020-07-29] MEDS: BLISOVI FE PO SCH (09:11)
[2020-07-29] MEDS: BusPIRone HCL 5 MG TABLET PO SCH ×3 (09:11→19:59)
[2020-07-29 16:01] VITALS: BP 133/77
[2020-07-29] MEDS: HydrOXYzine PAMOATE 50 MG CAPSULE PO PRN (16:07)
[2020-07-29] MEDS: HALOPERIDOL 5 MG TABLET PO PRN (18:31)
[2020-07-29] MEDS: QUEtiapine FUMARATE 200 MG TABLET PO SCH (20:00)
[2020-07-29] MEDS: ZOLPIDEM TARTRATE 10 MG TABLET PO PRN (20:24)
[2020-07-30 02:09] VITALS: BP 128/73
[2020-07-30 08:07] VITALS: BP 113/63
[2020-07-30] MEDS: BLISOVI FE PO SCH (08:12)
[2020-07-30] MEDS: THIAMINE 100 MG TABLET PO SCH (08:13)
[2020-07-30] MEDS: DIVALPROEX SODIUM 500 MG DR TABLET PO SCH (08:13)
[2020-07-30] MEDS: FLUoxetine HCL 20 MG CAPSULE PO SCH (08:13)
[2020-07-30] MEDS: MULTIVITAMINS WITH MINERALS, THERAPEUTIC TABLET PO SCH (08:13)
[2020-07-30] MEDS: FOLIC ACID 1 MG TABLET PO SCH (08:13)
[2020-07-30] MEDS: BusPIRone HCL 5 MG TABLET PO SCH (08:13)
[2020-07-30] MEDS: OMEGA-3/DHA/EPA/FISH OIL 1,000 MG CAPSULE PO SCH (08:13)
[2020-07-30] MEDS: HALOPERIDOL 5 MG TABLET PO PRN (08:23)
[2020-07-30] MEDS: HydrOXYzine PAMOATE 50 MG CAPSULE PO PRN (08:24)
[2020-07-30] MEDS ORDERED: FLUO-191 PO (11:01)
[2020-07-30] MEDS ORDERED: DIVA-112 PO (11:01)
[2020-07-30] MEDS ORDERED: QUET200T29 PO (11:01)
[2020-07-30] MEDS ORDERED: BUSP5TAB20 PO (12:50)
== END 2020-07-30 13:45 | disposition home or self-care (01) | DRG 753 ==
LOC: EMS 13:00 → B3A 17:03
DX: F31.4 Bipolar disorder, current episode depressed, severe, without psychotic features (principal); F10.20 Alcohol dependence, uncomplicated; I10 Essential (primary) hypertension; E11.9 Type 2 diabetes mellitus without complications; R45.851 Suicidal ideations; K21.9 Gastro-esophageal reflux disease without esophagitis; E78.5 Hyperlipidemia, unspecified; Z20.828 Contact with and (suspected) exposure to other viral communicable diseases; F19.10 Other psychoactive substance abuse, uncomplicated; F12.10 Cannabis abuse, uncomplicated; F41.9 Anxiety disorder, unspecified; Z79.899 Other long term (current) drug therapy
CPT/HCPCS: 80307; 83036; 84443; 87426; 90686; 90732; 93005; G0480; G0481; J1200; J1630; J2060; J2405; J3420; J7030

== ENCOUNTER 2020-08-04 09:32 | Emergency (ER) | payer MEDICAID, OTHER ==
[~2020-08-04] VITALS: Ht 157.5 cm; Wt 63.6 kg
[~2020-08-04 09:32] MED LIST changes: -BUSP10TA23 PO; +BUSP5TAB20 PO; +DIVA-112 PO; +FLUO-191 PO; -LAMO100 PO; -PROZ10 PO; +QUET200T29 PO
[2020-08-04] MEDS ORDERED: DIVA-112 PO (09:42)
[2020-08-04] MEDS ORDERED: BIRTH CONTROL PILLS PO (09:42)
[2020-08-04] MEDS ORDERED: ONDANSETRON HCL 4 MG/2 ML VIAL IVP ONE (10:30)
[2020-08-04] MEDS ORDERED: SODIUM CHLORIDE 0.9% 1,000 ML IV ONE (10:30)
[2020-08-04 10:31] LABS: AMPHET/METH SCREEN,URINE NEGATIVE (NEGATIVE); BARBITURATE SCREEN, URINE NEGATIVE (NEGATIVE); BENZODIAZEPINES SCREEN,URINE NEGATIVE (NEGATIVE); CANNABINOID SCREEN,URINE POSITIVE (NEGATIVE); COCAINE SCREEN,URINE NEGATIVE (NEGATIVE); METHADONE SCREEN, URINE NEGATIVE (NEGATIVE); OPIATE SCREEN,URINE NEGATIVE (NEGATIVE); PHENCYCLIDINE SCREEN,URINE NEGATIVE (NEGATIVE)
[2020-08-04 10:58] LABS: BASOPHILS % (AUTO) 1.6 % (0.0-2.0); HEMATOCRIT 36.4 % (36-46); HEMOGLOBIN 12.5 g/dL (12.0-16.0); LYMPHOCYTES # (AUTO) 1.7 K/uL (1.0-4.8); LYMPHOCYTES % (AUTO) 23.4 % (22.0-44.0); MEAN CORPUSCULAR HEMOGLOBIN 33.6 pg (26.0-34.0); MEAN CORPUSCULAR HGB CONC 34.4 G/dL (31.0-37.0); MEAN CORPUSCULAR VOLUME 98 fL (80-100); MONOCYTES # (AUTO) 0.6 K/uL (0.1-1.0); MONOCYTES % (AUTO) 7.9 % (2.0-9.0); NEUTROPHILS # (AUTO) 4.9 K/uL (1.8-7.7); NEUTROPHILS % (AUTO) 66.1 % (40.0-70.0); PLATELET COUNT (AUTO) 310 K/uL (150-450); RED BLOOD CELL COUNT(AUTO) 3.72 MIL/uL (4.00-5.20); RED CELL DISTRIBUTION WIDTH 14.1 % (11.5-14.5)
[2020-08-04 11:07] LABS: ANION GAP 10 mmol/L (8-16); CALCIUM, TOTAL 9.2 mg/dL (8.8-10.5); CARBON DIOXIDE 26 mmol/L (22-29); CHLORIDE 101 mmol/L (98-107); CREATININE 0.79 mg/dL (0.60-1.30); GLOMERULAR FILTR. RATE CALC > 60 mL/min (>60); GLUCOSE,RANDOM 98 mg/dL (70-110); POTASSIUM 4.2 mmol/L (3.5-5.1); SODIUM SERUM 137 mmol/L (136-145); UREA NITROGEN, BLOOD 13 mg/dL (7-18)
[2020-08-04 11:18] LABS: ALANINE AMINOTRANSFERASE 22 U/L (12-78); ALBUMIN 3.6 g/dL (3.4-5.0); ALKALINE PHOSPHATASE 45 U/L (46-116); ASPARTATE AMINOTRANSFERASE 17 U/L (15-37); BILIRUBIN,TOTAL 0.6 mg/dL (0.1-1.0); HCG,QUANTITATIVE 1 mIU/mL (0-6); TOTAL PROTEIN, SERUM 6.9 g/dL (6.4-8.2)
[2020-08-04 11:19] LABS: VALPROIC ACID < 3 mcg/mL (50-100)
[2020-08-04 11:26] VITALS: BP 172/108
[2020-08-04] MEDS ORDERED: LORazepam 1 MG TABLET PO ONE (11:30)
== END 2020-08-04 11:45 | disposition home or self-care (01) ==
LOC: EMS 09:34
DX: F41.9 Anxiety disorder, unspecified (principal); F10.229 Alcohol dependence with intoxication, unspecified; I10 Essential (primary) hypertension; E11.9 Type 2 diabetes mellitus without complications; F17.210 Nicotine dependence, cigarettes, uncomplicated; F12.90 Cannabis use, unspecified, uncomplicated; Z88.1 Allergy status to other antibiotic agents; Z79.899 Other long term (current) drug therapy
CPT/HCPCS: 36415; 80053; 80164; 80307; 84702; 85025; 96361; 96374; 99283; G0480; J2405; J7030

== ENCOUNTER 2022-03-10 14:30 | Inpatient (IN) | payer MEDICAID, OTHER ==
[~2022-03-10] VITALS: Ht 157.5 cm; Wt 79.0 kg
[~2022-03-10 14:30] MED LIST changes: +BIRTH CONTROL PILLS PO; +FLUO-177 PO; -FLUO-191 PO; -QUET200T29 PO; +QUET200T30 PO
[2022-03-10 16:01] LABS: BASOPHILS % (AUTO) 0.7 % (0.0-2.0); EOSINOPHILS % (AUTO) 5.2 % (1.0-6.0); HEMATOCRIT 35.3 % (36-46); HEMOGLOBIN 12.2 g/dL (12.0-16.0); LYMPHOCYTES # (AUTO) 1.6 K/uL (1.0-4.8); MEAN CORPUSCULAR HEMOGLOBIN 32.4 pg (26.0-34.0); MEAN CORPUSCULAR HGB CONC 34.6 G/dL (31.0-37.0); MEAN CORPUSCULAR VOLUME 94 fL (80-100); MONOCYTES # (AUTO) 0.5 K/uL (0.1-1.0); MONOCYTES % (AUTO) 7.2 % (2.0-9.0); NEUTROPHILS # (AUTO) 4.6 K/uL (1.8-7.7); NEUTROPHILS % (AUTO) 63.9 % (40.0-70.0); PLATELET COUNT (AUTO) 372 K/uL (150-450); RED BLOOD CELL COUNT(AUTO) 3.77 MIL/uL (4.00-5.20); RED CELL DISTRIBUTION WIDTH 12.5 % (11.5-14.5)
[2022-03-10 16:30] LABS: ALANINE AMINOTRANSFERASE 64 U/L (12-78); ALBUMIN 2.9 g/dL (3.4-5.0); ALKALINE PHOSPHATASE 140 U/L (46-116); ANION GAP 14 mmol/L (8-16); ASPARTATE AMINOTRANSFERASE 43 U/L (15-37); BILIRUBIN,TOTAL 0.4 mg/dL (0.1-1.0); CALCIUM, TOTAL 8.2 mg/dL (8.8-10.5); CARBON DIOXIDE 28 mmol/L (22-29); CHLORIDE 97 mmol/L (98-107); CREATININE 0.69 mg/dL (0.60-1.30); GLOMERULAR FILTR. RATE CALC > 60 mL/min (>60); GLUCOSE,RANDOM 116 mg/dL (70-110); SODIUM SERUM 139 mmol/L (136-145); TOTAL PROTEIN, SERUM 6.7 g/dL (6.4-8.2); UREA NITROGEN, BLOOD 6 mg/dL (7-18)
[2022-03-10 16:43] LABS: POTASSIUM 2.5 mmol/L (3.5-5.1)
[2022-03-10 16:54] LABS: AMPHET/METH SCREEN,URINE NEGATIVE (NEGATIVE); BARBITURATE SCREEN, URINE NEGATIVE (NEGATIVE); BENZODIAZEPINES SCREEN,URINE POSITIVE (NEGATIVE); CANNABINOID SCREEN,URINE NEGATIVE (NEGATIVE); COCAINE SCREEN,URINE NEGATIVE (NEGATIVE); METHADONE SCREEN, URINE NEGATIVE (NEGATIVE); OPIATE SCREEN,URINE NEGATIVE (NEGATIVE)
[2022-03-10] MEDS ORDERED: [UNRECOGNIZED DRUG - CODE] PO (16:58)
[2022-03-10] MEDS ORDERED: POTASSIUM CHL 10 MEQ/WATER 50 ML IV PRN (17:00)
[2022-03-10] MEDS ORDERED: POTASSIUM CHLORIDE 20 MEQ ER TABLET PO PRN (17:00)
[2022-03-10 17:04] LABS: PHENCYCLIDINE SCREEN,URINE NEGATIVE (NEGATIVE)
[2022-03-10] MEDS ORDERED: OLANZapine 5 MG RAPDIS TABLET PO PRN (18:45)
[2022-03-10] MEDS ORDERED: LORazepam 2 MG TABLET PO PRN (18:45)
[2022-03-11] VITALS (10 sets, daily range): BP systolic 140–160; BP diastolic 87–106
[2022-03-11] MEDS: ZOLPIDEM TARTRATE 10 MG TABLET PO PRN ×2 (01:50→02:24)
[2022-03-11] MEDS ORDERED: HydrOXYzine PAMOATE 50 MG CAPSULE PO PRN (15:45)
[2022-03-11] MEDS ORDERED: MAGNESIUM HYDROXIDE SUSPENSION 30 ML UDCUP PO PRN (15:45)
[2022-03-11] MEDS ORDERED: LORazepam 2 MG TABLET PO PRN (15:45)
[2022-03-11] MEDS ORDERED: CYANOCOBALAMIN 1,000 MCG/ML VIAL IM ONE (15:45)
[2022-03-11] MEDS ORDERED: LOPERAMIDE HCL 2 MG CAPSULE PO PRN ×2 (15:45)
[2022-03-11] MEDS ORDERED: GuaiFENesin/D-METHORPHAN [SUGAR-FREE] 200-20MG/10 ML SYRUP UDCUP PO PRN (15:45)
[2022-03-11] MEDS ORDERED: PROMETHAZINE HCL 25 MG TABLET PO PRN (15:45)
[2022-03-11] MEDS ORDERED: MAG HYDROX/AL HYDROX/SIMETH ES 30 ML SUSPENSION UDCUP PO PRN (15:45)
[2022-03-11] MEDS ORDERED: TUBERCULIN, PURIFIED PROTEIN DERIVATIVE 5 TU/0.1 ML SYRINGE ID ONE (15:45)
[2022-03-11] MEDS: THIAMINE 100 MG TABLET PO SCH (19:55)
[2022-03-11] MEDS: DIVALPROEX SODIUM 500 MG ER TABLET PO SCH (20:49)
[2022-03-11] MEDS: MELATONIN 5 MG TABLET PO SCH (20:49)
[2022-03-11] MEDS: QUEtiapine FUMARATE 100 MG TABLET PO SCH (20:49)
[2022-03-11] MEDS: ACETAMINOPHEN 325 MG TABLET PO PRN (21:13)
[2022-03-12] VITALS (8 sets, daily range): BP systolic 143–170; BP diastolic 86–109
[2022-03-12] MEDS: FOLIC ACID 1 MG TABLET PO SCH (08:13)
[2022-03-12] MEDS: LORazepam 2 MG TABLET PO SCH ×4 (08:13→20:29)
[2022-03-12] MEDS: OMEGA-3/DHA/EPA/FISH OIL 1,000 MG CAPSULE PO SCH (08:13)
[2022-03-12] MEDS: MULTIVITAMINS WITH MINERALS, THERAPEUTIC TABLET PO SCH (08:13)
[2022-03-12] MEDS: THIAMINE 100 MG TABLET PO SCH ×2 (08:14→16:29)
[2022-03-12] MEDS: QUEtiapine FUMARATE 100 MG TABLET PO PRN (08:14)
[2022-03-12] MEDS: NALTREXONE HCL 50 MG TABLET PO SCH (08:16)
[2022-03-12] MEDS ORDERED: FLUoxetine HCL 10 MG CAPSULE PO SCH (09:00)
[2022-03-12 09:48] LABS: HEMOGLOBIN A1C 5.8 % (3.8-5.6)
[2022-03-12 09:59] LABS: CHOL/HDL RATIO 2.5 (3.9-5.7)
[2022-03-12 10:36] LABS: FREE T4 (FREE THYROXINE) 0.88 ng/dL (0.76-1.46); THYROID STIMULATING HORMONE 0.12 uIU/mL (0.36-3.74)
[2022-03-12] MEDS: ACETAMINOPHEN 325 MG TABLET PO PRN (11:54)
[2022-03-12] MEDS ORDERED: CloNIDine HCL 0.1 MG TABLET PO PRN (14:45)
[2022-03-12] MEDS: AmLODIPine BESYLATE 5 MG TABLET PO SCH (14:48)
[2022-03-12] MEDS: GABAPENTIN 100 MG CAPSULE PO SCH ×2 (16:29→20:29)
[2022-03-12] MEDS: LORazepam 2 MG TABLET PO PRN ×2 (18:03→23:09)
[2022-03-12] MEDS: DIVALPROEX SODIUM 500 MG ER TABLET PO SCH (20:29)
[2022-03-12] MEDS: QUEtiapine FUMARATE 100 MG TABLET PO SCH (20:29)
[2022-03-12] MEDS: MELATONIN 5 MG TABLET PO SCH (21:00)
[2022-03-13] VITALS (7 sets, daily range): BP systolic 122–154; BP diastolic 78–102
[2022-03-13 01:21] LABS: COVID AG,FIA SOURCE NASAL SWAB
[2022-03-13] MEDS: MULTIVITAMINS WITH MINERALS, THERAPEUTIC TABLET PO SCH (08:04)
[2022-03-13] MEDS: OMEGA-3/DHA/EPA/FISH OIL 1,000 MG CAPSULE PO SCH (08:04)
[2022-03-13] MEDS: ACETAMINOPHEN 325 MG TABLET PO PRN (08:04)
[2022-03-13] MEDS: QUEtiapine FUMARATE 100 MG TABLET PO PRN (08:04)
[2022-03-13] MEDS: AmLODIPine BESYLATE 5 MG TABLET PO SCH (08:05)
[2022-03-13] MEDS: FOLIC ACID 1 MG TABLET PO SCH (08:05)
[2022-03-13] MEDS: GABAPENTIN 100 MG CAPSULE PO SCH ×4 (08:05→20:23)
[2022-03-13] MEDS: LORazepam 2 MG TABLET PO SCH ×4 (08:05→20:23)
[2022-03-13] MEDS: NALTREXONE HCL 50 MG TABLET PO SCH (08:05)
[2022-03-13] MEDS: THIAMINE 100 MG TABLET PO SCH ×2 (08:05→16:07)
[2022-03-13] MEDS ORDERED: POTASSIUM CHLORIDE 20 MEQ ER TABLET PO ONE (13:00)
[2022-03-13] MEDS ORDERED: CloNIDine HCL 0.1 MG TABLET PO ONE (14:45)
[2022-03-13] MEDS: DIVALPROEX SODIUM 500 MG ER TABLET PO SCH (20:23)
[2022-03-13] MEDS: MELATONIN 5 MG TABLET PO SCH (20:23)
[2022-03-13] MEDS: QUEtiapine FUMARATE 100 MG TABLET PO SCH (20:23)
[2022-03-14] MEDS: LORazepam 2 MG TABLET PO PRN (03:12)
[2022-03-14] MEDS: ZOLPIDEM TARTRATE 10 MG TABLET PO PRN (03:12)
[2022-03-14 03:39] VITALS: BP 138/74
[2022-03-14] MEDS ORDERED: LORazepam 1 MG TABLET PO PRN (07:00)
[2022-03-14] MEDS: THIAMINE 100 MG TABLET PO SCH (08:09)
[2022-03-14] MEDS: OMEGA-3/DHA/EPA/FISH OIL 1,000 MG CAPSULE PO SCH (08:09)
[2022-03-14] MEDS: MULTIVITAMINS WITH MINERALS, THERAPEUTIC TABLET PO SCH (08:09)
[2022-03-14] MEDS: GABAPENTIN 100 MG CAPSULE PO SCH ×2 (08:09→13:51)
[2022-03-14] MEDS: LORazepam 1 MG TABLET PO SCH ×2 (08:10→13:51)
[2022-03-14] MEDS: FOLIC ACID 1 MG TABLET PO SCH (08:10)
[2022-03-14] MEDS: NALTREXONE HCL 50 MG TABLET PO SCH (08:10)
[2022-03-14 08:12] VITALS: BP 151/113
[2022-03-14 08:26] LABS: ALANINE AMINOTRANSFERASE 100 U/L (12-78); ALBUMIN 2.9 g/dL (3.4-5.0); ALKALINE PHOSPHATASE 96 U/L (46-116); ASPARTATE AMINOTRANSFERASE 103 U/L (15-37); BILIRUBIN,TOTAL 0.2 mg/dL (0.1-1.0); CALCIUM, TOTAL 8.7 mg/dL (8.8-10.5); CHLORIDE 108 mmol/L (98-107); CREATININE 0.69 mg/dL (0.60-1.30); GLOMERULAR FILTR. RATE CALC > 60 mL/min (>60); GLUCOSE,RANDOM 107 mg/dL (70-110); POTASSIUM 4.8 mmol/L (3.5-5.1); SODIUM SERUM 135 mmol/L (136-145); TOTAL PROTEIN, SERUM 7.3 g/dL (6.4-8.2); UREA NITROGEN, BLOOD 12 mg/dL (7-18); VALPROIC ACID 41 mcg/mL (50-100)
[2022-03-14 08:29] LABS: ANION GAP -1 mmol/L (8-16); CARBON DIOXIDE 28 mmol/L (22-29)
[2022-03-14] MEDS ORDERED: AmLODIPine BESYLATE 10 MG TABLET PO SCH (09:00)
[2022-03-14] MEDS ORDERED: GABA-1216 PO (13:46)
[2022-03-14] MEDS ORDERED: QUET100T34 PO (13:46)
[2022-03-14] MEDS ORDERED: NALT50TA PO (13:46)
[2022-03-14] MEDS ORDERED: DIVA-80 PO (13:46)
[2022-03-14] MEDS ORDERED: OMEG-108 PO (13:46)
[2022-03-14] MEDS ORDERED: MELA5TAB40 PO (13:46)
[2022-03-14] MEDS ORDERED: AMLO-258 PO (15:37)
[2022-03-15] MEDS ORDERED: LORazepam 1 MG TABLET PO PRN (07:00)
[2022-03-15 07:06] LABS: HEPATITIS C AB (EIA) <0.1 s/co ratio (0.0-0.9)
== END 2022-03-14 16:00 | disposition home or self-care (01) | DRG 753 ==
LOC: EMS 14:30 → 3EC 03-11 01:47
PROVIDERS: ADMIT Psychiatry & Neurology Psychiatry; ATTEND Psychiatry & Neurology Psychiatry
DX: F31.5 Bipolar disorder, current episode depressed, severe, with psychotic features (principal); E11.9 Type 2 diabetes mellitus without complications; R45.851 Suicidal ideations; E05.90 Thyrotoxicosis, unspecified without thyrotoxic crisis or storm; Z20.822 Contact with and (suspected) exposure to COVID-19; E87.6 Hypokalemia; F17.200 Nicotine dependence, unspecified, uncomplicated; I10 Essential (primary) hypertension; Y90.1 Blood alcohol level of 20-39 mg/100 ml; Z55.9 Problems related to education and literacy, unspecified; Z59.9 Problem related to housing and economic circumstances, unspecified; Z63.9 Problem related to primary support group, unspecified; Z65.3 Problems related to other legal circumstances; Z82.49 Family history of ischemic heart disease and other diseases of the circulatory system; Z83.3 Family history of diabetes mellitus; Z91.19 Patient's noncompliance with other medical treatment and regimen; Z91.51 Personal history of suicidal behavior; Z88.8 Allergy status to other drugs, medicaments and biological substances
CPT/HCPCS: 80053; 80061; 80074; 80164; 83036; 84132; 84439; 84443; 85025; 86592; 99285; G0480; J3420; J3480; Q9967

== ENCOUNTER 2022-04-08 05:43 | Inpatient (IN) | payer MEDICAID ==
[~2022-04-08] VITALS: Ht 160 cm; Wt 84.4 kg
[~2022-04-08 05:43] MED LIST changes: +AMLO-258 PO; -BIRTH CONTROL PILLS PO; -BUSP5TAB20 PO; -DIVA-112 PO; +DIVA-80 PO; -FLUO-177 PO; +GABA-1216 PO; +MELA5TAB40 PO; +NALT50TA PO; +OMEG-108 PO; +QUET100T34 PO; -QUET200T30 PO
[2022-04-08 06:51] LABS: GLUCOMETER DEV NAME(LOC) POC.BV
[2022-04-08 08:27] VITALS: BP 120/78
[2022-04-08] MEDS: HALOPERIDOL 5 MG TABLET PO PRN ×3 (08:55→17:51)
[2022-04-08] MEDS: LORazepam 2 MG TABLET PO PRN ×3 (08:55→17:51)
[2022-04-08 09:15] VITALS: BP 112/66
[2022-04-08] MEDS ORDERED: FUROSEMIDE 20 MG TABLET PO ONE (10:45)
[2022-04-08 11:37] VITALS: BP 112/66
[2022-04-08] MEDS: BUPRENORPHINE HCL/NALOXONE HCL 8-2 MG SUBLINGUAL TABLET SL SCH (11:37)
[2022-04-08] MEDS: LITHIUM CARBONATE 300 MG ER TABLET PO SCH ×2 (12:30→20:00)
[2022-04-08] MEDS: LamoTRIgine 100 MG TABLET PO SCH (12:51)
[2022-04-08] MEDS: DULoxetine HCL 20 MG CAPSULE PO SCH (12:52)
[2022-04-08] MEDS ORDERED: NICOTINE 14 MG/24 HOUR PATCH TD PRN (13:00)
[2022-04-08] MEDS ORDERED: GuaiFENesin/D-METHORPHAN [SUGAR-FREE] 200-20MG/10 ML SYRUP UDCUP PO PRN (13:00)
[2022-04-08] MEDS ORDERED: IBUPROFEN 400 MG TABLET PO PRN (13:00)
[2022-04-08] MEDS ORDERED: MAG HYDROX/AL HYDROX/SIMETH ES 30 ML SUSPENSION UDCUP PO PRN (13:00)
[2022-04-08] MEDS ORDERED: ALBUTEROL SULFATE HFA 90 MCG/PUFF 8 GM INHALER IH PRN (13:00)
[2022-04-08] MEDS ORDERED: PETROLATUM,WHITE 28 GM JELLY TP PRN (13:00)
[2022-04-08] MEDS ORDERED: LOPERAMIDE HCL 2 MG CAPSULE PO PRN (13:00)
[2022-04-08] MEDS ORDERED: CloNIDine HCL 0.1 MG TABLET PO PRN (13:00)
[2022-04-08] MEDS: NICOTINE POLACRILEX 2 MG LOZENGE PO PRN (15:24)
[2022-04-08] MEDS: OLANZapine 10 MG TABLET PO SCH (16:00)
[2022-04-08] MEDS: PROPRANOLOL HCL 20 MG TABLET PO SCH (16:00)
[2022-04-08] MEDS ORDERED: NORE-223 PO (16:07)
[2022-04-08 16:54] VITALS: BP 105/61
[2022-04-08] MEDS: NORETHINDRONE PO SCH (21:00)
[2022-04-08] MEDS: FERROUS FUMARATE PO SCH (21:00)
[2022-04-08] MEDS: ETHINYL ESTRADIOL PO SCH (21:00)
[2022-04-09] MEDS: ZOLPIDEM TARTRATE 10 MG TABLET PO PRN ×2 (00:08→20:21)
[2022-04-09 00:33] VITALS: BP 102/67
[2022-04-09 06:22] VITALS: BP 114/64
[2022-04-09] MEDS: LORazepam 2 MG TABLET PO PRN ×3 (06:28→17:18)
[2022-04-09] MEDS: HALOPERIDOL 5 MG TABLET PO PRN ×3 (06:28→17:18)
[2022-04-09 06:54] LABS: BASOPHILS % (AUTO) 0.7 % (0.0-2.0); EOSINOPHILS % (AUTO) 6.1 % (1.0-6.0); HEMATOCRIT 32.7 % (36-46); HEMOGLOBIN 11.3 g/dL (12.0-16.0); LYMPHOCYTES # (AUTO) 1.5 K/uL (1.0-4.8); LYMPHOCYTES % (AUTO) 27.6 % (22.0-44.0); MEAN CORPUSCULAR HEMOGLOBIN 31.9 pg (26.0-34.0); MEAN CORPUSCULAR HGB CONC 34.5 G/dL (31.0-37.0); MEAN CORPUSCULAR VOLUME 93 fL (80-100); MONOCYTES # (AUTO) 0.5 K/uL (0.1-1.0); MONOCYTES % (AUTO) 9.8 % (2.0-9.0); NEUTROPHILS % (AUTO) 55.8 % (40.0-70.0); PLATELET COUNT (AUTO) 332 K/uL (150-450); RED BLOOD CELL COUNT(AUTO) 3.53 MIL/uL (4.00-5.20); RED CELL DISTRIBUTION WIDTH 13.6 % (11.5-14.5)
[2022-04-09 07:16] LABS: LITHIUM 0.36 mmol/L (0.60-1.20)
[2022-04-09 07:17] LABS: ALANINE AMINOTRANSFERASE 26 U/L (12-78); ALBUMIN 2.7 g/dL (3.4-5.0); ALKALINE PHOSPHATASE 67 U/L (46-116); ANION GAP 9 mmol/L (8-16); ASPARTATE AMINOTRANSFERASE 22 U/L (15-37); BILIRUBIN,TOTAL 0.5 mg/dL (0.1-1.0); CALCIUM, TOTAL 8.8 mg/dL (8.8-10.5); CARBON DIOXIDE 26 mmol/L (22-29); CHLORIDE 105 mmol/L (98-107); CHOL/HDL RATIO 2.3 (3.9-5.7); CHOLESTEROL 99 mg/dL (131-200); CREATININE 0.78 mg/dL (0.60-1.30); FREE T4 (FREE THYROXINE) 0.57 ng/dL (0.76-1.46); GLOMERULAR FILTR. RATE CALC > 60 mL/min (>60); GLUCOSE,RANDOM 111 mg/dL (70-110); HCG,QUANTITATIVE < 1 mIU/mL (0-6); HDL CHOLESTEROL 43 mg/dL (40-60); LDL CHOL (CALC.) 36 mg/dL (0-130); POTASSIUM 3.7 mmol/L (3.5-5.1); SODIUM SERUM 140 mmol/L (136-145); THYROID STIMULATING HORMONE 3.02 uIU/mL (0.36-3.74); TOTAL PROTEIN, SERUM 6.5 g/dL (6.4-8.2); TRIGLYCERIDES 99 mg/dL (15-150); UREA NITROGEN, BLOOD 14 mg/dL (7-18)
[2022-04-09 07:19] LABS: AMPHET/METH SCREEN,URINE NEGATIVE (NEGATIVE); BARBITURATE SCREEN, URINE NEGATIVE (NEGATIVE); BENZODIAZEPINES SCREEN,URINE POSITIVE (NEGATIVE); CANNABINOID SCREEN,URINE NEGATIVE (NEGATIVE); COCAINE SCREEN,URINE NEGATIVE (NEGATIVE); METHADONE SCREEN, URINE NEGATIVE (NEGATIVE); OPIATE SCREEN,URINE NEGATIVE (NEGATIVE)
[2022-04-09 07:21] LABS: PHENCYCLIDINE SCREEN,URINE NEGATIVE (NEGATIVE)
[2022-04-09 07:25] LABS: APPEARANCE,URINE CLEAR (CLEAR); BILIRUBIN,URINE NEGATIVE (NEGATIVE); GLUCOSE, URINE (UA) NEGATIVE (NEGATIVE); KETONES,URINE NEGATIVE (NEGATIVE); LEUKOCYTE ESTERASE ,URINE NEGATIVE (NEGATIVE); NITRATE,URINE NEGATIVE (NEGATIVE); OCCULT BLOOD,URINE NEGATIVE (NEGATIVE); PROTEIN,URINE NEGATIVE (NEGATIVE); UROBILINOGEN,URINE <=1.0 mg/dL (<=1.0)
[2022-04-09] MEDS: LITHIUM CARBONATE 300 MG ER TABLET PO SCH ×2 (07:58→20:23)
[2022-04-09] MEDS: PROPRANOLOL HCL 20 MG TABLET PO SCH ×2 (07:58→16:08)
[2022-04-09] MEDS: BUPRENORPHINE HCL/NALOXONE HCL 8-2 MG SUBLINGUAL TABLET SL SCH (07:59)
[2022-04-09] MEDS: DULoxetine HCL 20 MG CAPSULE PO SCH (07:59)
[2022-04-09] MEDS: OLANZapine 10 MG TABLET PO SCH ×2 (07:59→16:08)
[2022-04-09] MEDS: LamoTRIgine 100 MG TABLET PO SCH (07:59)
[2022-04-09] MEDS: FERROUS FUMARATE PO SCH (08:00)
[2022-04-09] MEDS: ETHINYL ESTRADIOL PO SCH (08:00)
[2022-04-09] MEDS: NORETHINDRONE PO SCH (08:00)
[2022-04-09 08:03] VITALS: BP 107/58
[2022-04-09 08:10] VITALS: BP 106/64
[2022-04-09] MEDS: DOCUSATE SODIUM 100 MG CAPSULE PO PRN (08:55)
[2022-04-09] MEDS: NICOTINE POLACRILEX 2 MG LOZENGE PO PRN (09:56)
[2022-04-09 16:31] VITALS: BP 110/68
[2022-04-10 02:43] VITALS: BP 101/65
[2022-04-10] MEDS: HALOPERIDOL 5 MG TABLET PO PRN (02:59)
[2022-04-10] MEDS: LORazepam 2 MG TABLET PO PRN ×2 (03:00→13:15)
[2022-04-10 08:36] VITALS: BP 117/66
[2022-04-10] MEDS: NORETHINDRONE PO SCH (08:41)
[2022-04-10] MEDS: LamoTRIgine 100 MG TABLET PO SCH (08:41)
[2022-04-10] MEDS: FERROUS FUMARATE PO SCH (08:41)
[2022-04-10] MEDS: ETHINYL ESTRADIOL PO SCH (08:41)
[2022-04-10] MEDS: BUPRENORPHINE HCL/NALOXONE HCL 8-2 MG SUBLINGUAL TABLET SL SCH (08:41)
[2022-04-10] MEDS: LITHIUM CARBONATE 300 MG ER TABLET PO SCH ×2 (08:42→20:57)
[2022-04-10] MEDS: OLANZapine 10 MG TABLET PO SCH ×2 (08:42→16:51)
[2022-04-10] MEDS: PROPRANOLOL HCL 20 MG TABLET PO SCH ×2 (08:42→17:06)
[2022-04-10] MEDS: DULoxetine HCL 20 MG CAPSULE PO SCH (08:42)
[2022-04-10] MEDS ORDERED: DiphenhydrAMINE HCL 50 MG/ML VIAL IM ONE (09:00)
[2022-04-10] MEDS ORDERED: LORazepam 2 MG/ML VIAL IM ONE (09:00)
[2022-04-10] MEDS ORDERED: HALOPERIDOL LACTATE 5 MG/ML VIAL IM ONE (09:00)
[2022-04-10 16:47] VITALS: BP 115/63
[2022-04-11 00:09] VITALS: BP 112/67
[2022-04-11] MEDS: LamoTRIgine 100 MG TABLET PO SCH (08:23)
[2022-04-11] MEDS: ETHINYL ESTRADIOL PO SCH (08:23)
[2022-04-11] MEDS: OLANZapine 10 MG TABLET PO SCH ×2 (08:23→16:16)
[2022-04-11] MEDS: FERROUS FUMARATE PO SCH (08:23)
[2022-04-11] MEDS: BUPRENORPHINE HCL/NALOXONE HCL 8-2 MG SUBLINGUAL TABLET SL SCH (08:23)
[2022-04-11] MEDS: NORETHINDRONE PO SCH (08:23)
[2022-04-11] MEDS: DULoxetine HCL 20 MG CAPSULE PO SCH (08:24)
[2022-04-11] MEDS: LORazepam 2 MG TABLET PO PRN ×3 (08:24→22:27)
[2022-04-11] MEDS: LITHIUM CARBONATE 300 MG ER TABLET PO SCH ×2 (08:24→21:00)
[2022-04-11] MEDS: MAGNESIUM HYDROXIDE SUSPENSION 30 ML UDCUP PO PRN (08:34)
[2022-04-11] MEDS: NICOTINE POLACRILEX 2 MG LOZENGE PO PRN (08:38)
[2022-04-11 08:41] VITALS: BP 104/62
[2022-04-11] MEDS: HALOPERIDOL 5 MG TABLET PO PRN (10:43)
[2022-04-11] MEDS ORDERED: FUROSEMIDE 20 MG TABLET PO ONE (10:45)
[2022-04-11] MEDS: CEPHALEXIN MONOHYDRATE 500 MG CAPSULE PO SCH ×2 (12:45→16:17)
[2022-04-11] MEDS ORDERED: CEPHALEXIN MONOHYDRATE 500 MG CAPSULE PO SCH (13:00)
[2022-04-11 13:17] VITALS: BP 106/61
[2022-04-11] MEDS: PROPRANOLOL HCL 20 MG TABLET PO SCH ×3 (13:18→16:17)
[2022-04-11 16:48] VITALS: BP 95/59
[2022-04-12 00:27] VITALS: BP 102/63
[2022-04-12 08:02] VITALS: BP 110/68
[2022-04-12] MEDS: DULoxetine HCL 20 MG CAPSULE PO SCH (08:34)
[2022-04-12] MEDS: LamoTRIgine 100 MG TABLET PO SCH (08:35)
[2022-04-12] MEDS: BUPRENORPHINE HCL/NALOXONE HCL 8-2 MG SUBLINGUAL TABLET SL SCH (08:35)
[2022-04-12] MEDS: CEPHALEXIN MONOHYDRATE 500 MG CAPSULE PO SCH ×3 (08:35→16:11)
[2022-04-12] MEDS: OLANZapine 10 MG TABLET PO SCH ×2 (08:35→16:11)
[2022-04-12] MEDS: NORETHINDRONE PO SCH (08:36)
[2022-04-12] MEDS: ETHINYL ESTRADIOL PO SCH (08:36)
[2022-04-12] MEDS: LORazepam 2 MG TABLET PO PRN ×2 (08:36→13:13)
[2022-04-12] MEDS: FERROUS FUMARATE PO SCH (08:36)
[2022-04-12] MEDS: LITHIUM CARBONATE 300 MG ER TABLET PO SCH ×2 (09:00→20:07)
[2022-04-12] MEDS: PROPRANOLOL HCL 20 MG TABLET PO SCH ×2 (09:00→16:11)
[2022-04-12] MEDS: NICOTINE POLACRILEX 2 MG LOZENGE PO PRN (09:46)
[2022-04-12] MEDS: HALOPERIDOL 5 MG TABLET PO PRN (13:13)
[2022-04-12 16:06] VITALS: BP 118/69
[2022-04-13 00:02] VITALS: BP 114/63
[2022-04-13] MEDS: ZOLPIDEM TARTRATE 10 MG TABLET PO PRN (02:56)
[2022-04-13] MEDS: NORETHINDRONE PO SCH (08:18)
[2022-04-13] MEDS: FERROUS FUMARATE PO SCH (08:18)
[2022-04-13] MEDS: ETHINYL ESTRADIOL PO SCH (08:18)
[2022-04-13] MEDS: DULoxetine HCL 20 MG CAPSULE PO SCH (08:20)
[2022-04-13] MEDS: PROPRANOLOL HCL 20 MG TABLET PO SCH ×2 (08:20→16:01)
[2022-04-13] MEDS: LITHIUM CARBONATE 300 MG ER TABLET PO SCH ×2 (08:20→20:03)
[2022-04-13] MEDS: LamoTRIgine 100 MG TABLET PO SCH (08:21)
[2022-04-13] MEDS: CEPHALEXIN MONOHYDRATE 500 MG CAPSULE PO SCH ×3 (08:21→16:02)
[2022-04-13] MEDS: OLANZapine 10 MG TABLET PO SCH ×2 (08:22→16:01)
[2022-04-13] MEDS: BUPRENORPHINE HCL/NALOXONE HCL 8-2 MG SUBLINGUAL TABLET SL SCH (08:23)
[2022-04-13 08:50] VITALS: BP 103/61
[2022-04-13] MEDS: LORazepam 2 MG TABLET PO PRN ×2 (10:40→14:57)
[2022-04-13] MEDS: HALOPERIDOL 5 MG TABLET PO PRN ×2 (10:40→14:57)
[2022-04-13] MEDS: ONDANSETRON HCL 4 MG TABLET PO PRN (11:23)
[2022-04-13] MEDS: NICOTINE POLACRILEX 2 MG LOZENGE PO PRN (16:01)
[2022-04-13 16:05] VITALS: BP 140/80
[2022-04-14 05:54] VITALS: BP 145/90
[2022-04-14] MEDS: NICOTINE POLACRILEX 2 MG LOZENGE PO PRN ×2 (06:16→12:49)
[2022-04-14 08:08] VITALS: BP 116/63
[2022-04-14] MEDS: PROPRANOLOL HCL 20 MG TABLET PO SCH ×2 (08:12→17:00)
[2022-04-14] MEDS: ETHINYL ESTRADIOL PO SCH (08:13)
[2022-04-14] MEDS: NORETHINDRONE PO SCH (08:13)
[2022-04-14] MEDS: LITHIUM CARBONATE 300 MG ER TABLET PO SCH ×2 (08:13→22:12)
[2022-04-14] MEDS: FERROUS FUMARATE PO SCH (08:13)
[2022-04-14] MEDS: LamoTRIgine 100 MG TABLET PO SCH (08:14)
[2022-04-14] MEDS: CEPHALEXIN MONOHYDRATE 500 MG CAPSULE PO SCH ×3 (08:14→16:36)
[2022-04-14] MEDS: BUPRENORPHINE HCL/NALOXONE HCL 8-2 MG SUBLINGUAL TABLET SL SCH (08:14)
[2022-04-14] MEDS: OLANZapine 10 MG TABLET PO SCH ×2 (08:14→16:36)
[2022-04-14] MEDS: DULoxetine HCL 20 MG CAPSULE PO SCH (08:14)
[2022-04-14] MEDS: ACETAMINOPHEN 325 MG TABLET PO PRN (08:39)
[2022-04-14] MEDS: MAGNESIUM HYDROXIDE SUSPENSION 30 ML UDCUP PO PRN (08:39)
[2022-04-14] MEDS: LORazepam 2 MG TABLET PO PRN ×2 (08:40→12:49)
[2022-04-14] MEDS: HALOPERIDOL 5 MG TABLET PO PRN (11:10)
[2022-04-14 16:35] VITALS: BP 102/63
[2022-04-14 18:27] VITALS: BP 98/60
[2022-04-15 00:01] VITALS: BP 97/62
[2022-04-15] MEDS: HALOPERIDOL 5 MG TABLET PO PRN ×2 (02:35→17:10)
[2022-04-15] MEDS: LORazepam 2 MG TABLET PO PRN ×2 (02:35→08:00)
[2022-04-15] MEDS: NICOTINE POLACRILEX 2 MG LOZENGE PO PRN (05:53)
[2022-04-15 08:30] VITALS: BP 108/76
[2022-04-15] MEDS: LamoTRIgine 100 MG TABLET PO SCH (09:08)
[2022-04-15] MEDS: CEPHALEXIN MONOHYDRATE 500 MG CAPSULE PO SCH ×3 (09:08→17:11)
[2022-04-15] MEDS: OLANZapine 10 MG TABLET PO SCH ×2 (09:08→17:11)
[2022-04-15] MEDS: NORETHINDRONE PO SCH (09:10)
[2022-04-15] MEDS: BUPRENORPHINE HCL/NALOXONE HCL 8-2 MG SUBLINGUAL TABLET SL SCH (09:10)
[2022-04-15] MEDS: FERROUS FUMARATE PO SCH (09:10)
[2022-04-15] MEDS: ETHINYL ESTRADIOL PO SCH (09:10)
[2022-04-15] MEDS: PROPRANOLOL HCL 20 MG TABLET PO SCH ×2 (09:11→17:11)
[2022-04-15] MEDS: LITHIUM CARBONATE 300 MG ER TABLET PO SCH ×2 (09:11→20:14)
[2022-04-15] MEDS: DULoxetine HCL 20 MG CAPSULE PO SCH (09:16)
[2022-04-15 16:06] VITALS: BP 107/64
[2022-04-15] MEDS: HydrOXYzine PAMOATE 50 MG CAPSULE PO PRN (17:10)
[2022-04-15] MEDS: ZOLPIDEM TARTRATE 10 MG TABLET PO PRN (20:37)
[2022-04-15] MEDS: ONDANSETRON HCL 4 MG TABLET PO PRN (21:37)
[2022-04-16 00:28] VITALS: BP 101/61
[2022-04-16] MEDS: ACETAMINOPHEN 325 MG TABLET PO PRN (01:28)
[2022-04-16 08:15] VITALS: BP 103/64
[2022-04-16 08:32] VITALS: BP 106/70
[2022-04-16] MEDS: BUPRENORPHINE HCL/NALOXONE HCL 8-2 MG SUBLINGUAL TABLET SL SCH (08:33)
[2022-04-16] MEDS: OLANZapine 10 MG TABLET PO SCH ×2 (08:33→17:51)
[2022-04-16] MEDS: CEPHALEXIN MONOHYDRATE 500 MG CAPSULE PO SCH ×3 (08:34→17:51)
[2022-04-16] MEDS: FERROUS FUMARATE PO SCH (08:34)
[2022-04-16] MEDS: LamoTRIgine 100 MG TABLET PO SCH (08:34)
[2022-04-16] MEDS: ETHINYL ESTRADIOL PO SCH (08:34)
[2022-04-16] MEDS: NORETHINDRONE PO SCH (08:34)
[2022-04-16] MEDS: LITHIUM CARBONATE 300 MG ER TABLET PO SCH ×2 (08:34→20:25)
[2022-04-16] MEDS: DULoxetine HCL 20 MG CAPSULE PO SCH (08:34)
[2022-04-16] MEDS: PROPRANOLOL HCL 20 MG TABLET PO SCH ×2 (08:34→17:51)
[2022-04-16] MEDS: NICOTINE POLACRILEX 2 MG LOZENGE PO PRN ×2 (10:11→14:20)
[2022-04-16] MEDS: HydrOXYzine PAMOATE 50 MG CAPSULE PO PRN (11:06)
[2022-04-16] MEDS: HALOPERIDOL 5 MG TABLET PO PRN (11:07)
[2022-04-16] MEDS ORDERED: DiphenhydrAMINE HCL 50 MG/ML VIAL ONE (12:35)
[2022-04-16] MEDS ORDERED: ChlorproMAZINE HCL 50 MG/2 ML AMP ONE (12:35)
[2022-04-16] MEDS ORDERED: ChlorproMAZINE HCL 50 MG/2 ML AMP IM ONE (13:00)
[2022-04-16] MEDS ORDERED: DiphenhydrAMINE HCL 50 MG/ML VIAL IM ONE (13:00)
[2022-04-16 18:04] VITALS: BP 102/65
[2022-04-16] MEDS: ZOLPIDEM TARTRATE 10 MG TABLET PO PRN (23:06)
[2022-04-17 01:29] VITALS: BP 100/61
[2022-04-17 08:20] LABS: ALANINE AMINOTRANSFERASE 26 U/L (12-78); ALBUMIN 2.6 g/dL (3.4-5.0); ALKALINE PHOSPHATASE 68 U/L (46-116); ANION GAP 9 mmol/L (8-16); ASPARTATE AMINOTRANSFERASE 24 U/L (15-37); BILIRUBIN,TOTAL 0.3 mg/dL (0.1-1.0); CALCIUM, TOTAL 8.5 mg/dL (8.8-10.5); CARBON DIOXIDE 26 mmol/L (22-29); CHLORIDE 105 mmol/L (98-107); CREATININE 0.83 mg/dL (0.60-1.30); GLUCOSE,RANDOM 133 mg/dL (70-110); SODIUM SERUM 140 mmol/L (136-145); TOTAL PROTEIN, SERUM 5.9 g/dL (6.4-8.2); UREA NITROGEN, BLOOD 16 mg/dL (7-18)
[2022-04-17 08:21] LABS: GLOMERULAR FILTR. RATE CALC > 60 mL/min (>60)
[2022-04-17 08:26] LABS: APPEARANCE,URINE CLEAR (CLEAR); BILIRUBIN,URINE NEGATIVE (NEGATIVE); GLUCOSE, URINE (UA) NEGATIVE (NEGATIVE); KETONES,URINE NEGATIVE (NEGATIVE); LEUKOCYTE ESTERASE ,URINE NEGATIVE (NEGATIVE); NITRATE,URINE NEGATIVE (NEGATIVE); OCCULT BLOOD,URINE NEGATIVE (NEGATIVE); PH,URINE 6.5 (5.0-8.0); PROTEIN,URINE NEGATIVE (NEGATIVE); SPECIFIC GRAVITIY, URINE 1.015 (1.003-1.030); UROBILINOGEN,URINE <=1.0 mg/dL (<=1.0)
[2022-04-17] MEDS: CEPHALEXIN MONOHYDRATE 500 MG CAPSULE PO SCH ×3 (09:55→16:56)
[2022-04-17] MEDS: DULoxetine HCL 20 MG CAPSULE PO SCH (09:55)
[2022-04-17] MEDS: FERROUS FUMARATE PO SCH (09:55)
[2022-04-17] MEDS: ETHINYL ESTRADIOL PO SCH (09:55)
[2022-04-17] MEDS: BUPRENORPHINE HCL/NALOXONE HCL 8-2 MG SUBLINGUAL TABLET SL SCH (09:55)
[2022-04-17] MEDS: LamoTRIgine 100 MG TABLET PO SCH (09:55)
[2022-04-17] MEDS: NORETHINDRONE PO SCH (09:55)
[2022-04-17] MEDS: OLANZapine 10 MG TABLET PO SCH ×2 (09:55→16:56)
[2022-04-17] MEDS: PROPRANOLOL HCL 20 MG TABLET PO SCH ×2 (09:56→16:56)
[2022-04-17] MEDS: LITHIUM CARBONATE 300 MG ER TABLET PO SCH ×2 (09:56→20:01)
[2022-04-17 10:02] VITALS: BP 106/78
[2022-04-17] MEDS: HALOPERIDOL 5 MG TABLET PO PRN (12:18)
[2022-04-17] MEDS: NICOTINE POLACRILEX 2 MG LOZENGE PO PRN ×2 (12:18→17:06)
[2022-04-17] MEDS: HydrOXYzine PAMOATE 50 MG CAPSULE PO PRN (12:18)
[2022-04-17 16:07] VITALS: BP 101/64
[2022-04-17] MEDS: GABAPENTIN 300 MG CAPSULE PO SCH (16:56)
[2022-04-17] MEDS: ZOLPIDEM TARTRATE 10 MG TABLET PO PRN (20:01)
[2022-04-17] MEDS: BACITRACIN 28 GM OINTMENT TP SCH (20:17)
[2022-04-18 00:10] VITALS: BP 102/63
[2022-04-18 08:07] VITALS: BP 111/71
[2022-04-18] MEDS: BUPRENORPHINE HCL/NALOXONE HCL 8-2 MG SUBLINGUAL TABLET SL SCH (08:20)
[2022-04-18] MEDS: LamoTRIgine 100 MG TABLET PO SCH (08:20)
[2022-04-18] MEDS: CEPHALEXIN MONOHYDRATE 500 MG CAPSULE PO SCH ×3 (08:20→16:08)
[2022-04-18] MEDS: OLANZapine 10 MG TABLET PO SCH ×2 (08:21→16:08)
[2022-04-18] MEDS: DULoxetine HCL 60 MG CAPSULE PO SCH (08:21)
[2022-04-18] MEDS: LITHIUM CARBONATE 300 MG ER TABLET PO SCH ×2 (08:22→20:00)
[2022-04-18] MEDS: ETHINYL ESTRADIOL PO SCH (08:22)
[2022-04-18] MEDS: PROPRANOLOL HCL 20 MG TABLET PO SCH ×2 (08:22→16:08)
[2022-04-18] MEDS: FERROUS FUMARATE PO SCH (08:22)
[2022-04-18] MEDS: NORETHINDRONE PO SCH (08:22)
[2022-04-18] MEDS: GABAPENTIN 300 MG CAPSULE PO SCH ×3 (08:22→16:08)
[2022-04-18] MEDS: BACITRACIN 28 GM OINTMENT TP SCH ×2 (08:24→16:21)
[2022-04-18] MEDS: NICOTINE POLACRILEX 2 MG LOZENGE PO PRN ×2 (08:51→13:42)
[2022-04-18] MEDS: HydrOXYzine PAMOATE 50 MG CAPSULE PO PRN (09:59)
[2022-04-18] MEDS: HALOPERIDOL 5 MG TABLET PO PRN (09:59)
[2022-04-18] MEDS ORDERED: MAGNESIUM OXIDE 400 MG TABLET PO ONE (10:15)
[2022-04-18] MEDS: LACTULOSE 20 GM/30 ML SOLUTION UDCUP PO SCH (10:32)
[2022-04-18] MEDS: DOCUSATE SODIUM 100 MG CAPSULE PO PRN (12:38)
[2022-04-18] MEDS ORDERED: DiphenhydrAMINE HCL 50 MG/ML VIAL IM ONE (14:15)
[2022-04-18] MEDS ORDERED: HALOPERIDOL LACTATE 5 MG/ML VIAL IM ONE (14:15)
[2022-04-18] MEDS: ACETAMINOPHEN 325 MG TABLET PO PRN (19:08)
[2022-04-18 22:01] VITALS: BP 98/55
[2022-04-19 04:46] LABS: GLUCOMETER DEV NAME(LOC) POC.BV
[2022-04-19 08:12] VITALS: BP 108/67
[2022-04-19] MEDS: CEPHALEXIN MONOHYDRATE 500 MG CAPSULE PO SCH ×3 (08:59→16:32)
[2022-04-19] MEDS: GABAPENTIN 300 MG CAPSULE PO SCH ×3 (09:00→16:33)
[2022-04-19] MEDS: DULoxetine HCL 60 MG CAPSULE PO SCH (09:00)
[2022-04-19] MEDS: BUPRENORPHINE HCL/NALOXONE HCL 8-2 MG SUBLINGUAL TABLET SL SCH (09:00)
[2022-04-19] MEDS: PROPRANOLOL HCL 20 MG TABLET PO SCH ×2 (09:01→17:00)
[2022-04-19] MEDS: LamoTRIgine 100 MG TABLET PO SCH (09:01)
[2022-04-19] MEDS: OLANZapine 10 MG TABLET PO SCH ×2 (09:01→16:33)
[2022-04-19] MEDS: ETHINYL ESTRADIOL PO SCH (09:02)
[2022-04-19] MEDS: LACTULOSE 20 GM/30 ML SOLUTION UDCUP PO SCH (09:02)
[2022-04-19] MEDS: FERROUS FUMARATE PO SCH (09:02)
[2022-04-19] MEDS: LITHIUM CARBONATE 300 MG ER TABLET PO SCH ×2 (09:02→20:36)
[2022-04-19] MEDS: NORETHINDRONE PO SCH (09:02)
[2022-04-19] MEDS: BACITRACIN 28 GM OINTMENT TP SCH ×2 (09:03→16:33)
[2022-04-19] MEDS: MAGNESIUM HYDROXIDE SUSPENSION 30 ML UDCUP PO PRN (10:30)
[2022-04-19] MEDS: HydrOXYzine PAMOATE 50 MG CAPSULE PO PRN (13:25)
[2022-04-19 16:20] VITALS: BP 102/67
[2022-04-19 17:11] VITALS: BP 99/62
[2022-04-19] MEDS ORDERED: PERMETHRIN 5% 60 GM CREAM TP ONE (18:30)
[2022-04-19] MEDS: HALOPERIDOL 5 MG TABLET PO PRN (20:19)
[2022-04-20 01:13] VITALS: BP 108/62
[2022-04-20] MEDS: HALOPERIDOL 5 MG TABLET PO PRN ×2 (03:22→20:20)
[2022-04-20 08:06] VITALS: BP 107/71
[2022-04-20] MEDS: NORETHINDRONE PO SCH (08:32)
[2022-04-20] MEDS: ETHINYL ESTRADIOL PO SCH (08:32)
[2022-04-20] MEDS: PROPRANOLOL HCL 20 MG TABLET PO SCH ×2 (08:32→16:27)
[2022-04-20] MEDS: FERROUS FUMARATE PO SCH (08:32)
[2022-04-20] MEDS: BUPRENORPHINE HCL/NALOXONE HCL 8-2 MG SUBLINGUAL TABLET SL SCH (08:33)
[2022-04-20] MEDS: LamoTRIgine 100 MG TABLET PO SCH (08:33)
[2022-04-20] MEDS: LITHIUM CARBONATE 300 MG ER TABLET PO SCH ×2 (08:33→20:36)
[2022-04-20] MEDS: GABAPENTIN 300 MG CAPSULE PO SCH ×3 (08:33→16:29)
[2022-04-20] MEDS: DULoxetine HCL 60 MG CAPSULE PO SCH (08:33)
[2022-04-20] MEDS: LACTULOSE 20 GM/30 ML SOLUTION UDCUP PO SCH (08:34)
[2022-04-20] MEDS: BACITRACIN 28 GM OINTMENT TP SCH ×2 (08:34→16:29)
[2022-04-20] MEDS: OLANZapine 10 MG TABLET PO SCH ×2 (08:34→16:29)
[2022-04-20] MEDS: CEPHALEXIN MONOHYDRATE 500 MG CAPSULE PO SCH ×3 (08:34→16:28)
[2022-04-20] MEDS: MAGNESIUM HYDROXIDE SUSPENSION 30 ML UDCUP PO PRN (10:29)
[2022-04-20] MEDS: NICOTINE POLACRILEX 2 MG LOZENGE PO PRN ×2 (11:35→17:03)
[2022-04-20 16:05] VITALS: BP 104/66
[2022-04-20] MEDS: ONDANSETRON HCL 4 MG TABLET PO PRN (17:01)
[2022-04-20 20:40] VITALS: BP 106/60
[2022-04-21] MEDS: HALOPERIDOL 5 MG TABLET PO PRN ×2 (02:14→11:59)
[2022-04-21 02:16] VITALS: BP 131/83
[2022-04-21 08:10] VITALS: BP 112/68
[2022-04-21] MEDS: DULoxetine HCL 60 MG CAPSULE PO SCH (08:13)
[2022-04-21] MEDS: LACTULOSE 20 GM/30 ML SOLUTION UDCUP PO SCH (08:13)
[2022-04-21] MEDS: LamoTRIgine 100 MG TABLET PO SCH (08:13)
[2022-04-21] MEDS: OLANZapine 10 MG TABLET PO SCH ×2 (08:13→16:04)
[2022-04-21] MEDS: CEPHALEXIN MONOHYDRATE 500 MG CAPSULE PO SCH (08:13)
[2022-04-21] MEDS: GABAPENTIN 300 MG CAPSULE PO SCH ×3 (08:13→16:04)
[2022-04-21] MEDS: LITHIUM CARBONATE 300 MG ER TABLET PO SCH ×2 (08:14→20:13)
[2022-04-21] MEDS: PROPRANOLOL HCL 20 MG TABLET PO SCH ×2 (08:14→16:04)
[2022-04-21] MEDS: BACITRACIN 28 GM OINTMENT TP SCH ×2 (08:14→16:21)
[2022-04-21] MEDS: BUPRENORPHINE HCL/NALOXONE HCL 8-2 MG SUBLINGUAL TABLET SL SCH (08:14)
[2022-04-21] MEDS: FERROUS FUMARATE PO SCH (08:15)
[2022-04-21] MEDS: ETHINYL ESTRADIOL PO SCH (08:15)
[2022-04-21] MEDS: NORETHINDRONE PO SCH (08:15)
[2022-04-21] MEDS: ONDANSETRON HCL 4 MG TABLET PO PRN (09:49)
[2022-04-21] MEDS: NICOTINE POLACRILEX 2 MG LOZENGE PO PRN ×2 (10:26→15:33)
[2022-04-21] MEDS: HydrOXYzine PAMOATE 50 MG CAPSULE PO PRN (11:59)
[2022-04-21 12:41] VITALS: BP 106/66
[2022-04-21 18:50] VITALS: BP 105/68
[2022-04-21] MEDS: ACETAMINOPHEN 325 MG TABLET PO PRN (18:51)
[2022-04-21 20:11] VITALS: BP 106/70
[2022-04-22] MEDS: HALOPERIDOL 5 MG TABLET PO PRN ×2 (00:01→16:20)
[2022-04-22] MEDS: HydrOXYzine PAMOATE 50 MG CAPSULE PO PRN ×2 (00:01→16:20)
[2022-04-22] MEDS: OLANZapine 10 MG TABLET PO SCH ×2 (08:13→16:59)
[2022-04-22] MEDS: NORETHINDRONE PO SCH (08:13)
[2022-04-22] MEDS: FERROUS FUMARATE PO SCH (08:13)
[2022-04-22] MEDS: ETHINYL ESTRADIOL PO SCH (08:13)
[2022-04-22] MEDS: DULoxetine HCL 60 MG CAPSULE PO SCH (08:13)
[2022-04-22] MEDS: LamoTRIgine 100 MG TABLET PO SCH (08:14)
[2022-04-22] MEDS: LACTULOSE 20 GM/30 ML SOLUTION UDCUP PO SCH (08:14)
[2022-04-22] MEDS: PROPRANOLOL HCL 20 MG TABLET PO SCH ×2 (08:14→16:59)
[2022-04-22] MEDS: GABAPENTIN 300 MG CAPSULE PO SCH ×3 (08:14→16:59)
[2022-04-22] MEDS: LITHIUM CARBONATE 300 MG ER TABLET PO SCH ×2 (08:15→20:02)
[2022-04-22] MEDS: BUPRENORPHINE HCL/NALOXONE HCL 8-2 MG SUBLINGUAL TABLET SL SCH (08:15)
[2022-04-22] MEDS: BACITRACIN 28 GM OINTMENT TP SCH ×2 (08:42→16:59)
[2022-04-22] MEDS: NICOTINE POLACRILEX 2 MG LOZENGE PO PRN ×3 (09:47→17:49)
[2022-04-22 12:23] VITALS: BP 94/63
[2022-04-22] MEDS: ONDANSETRON HCL 4 MG TABLET PO PRN (12:46)
[2022-04-22 20:18] VITALS: BP 109/69
[2022-04-23 05:23] VITALS: BP 148/92
[2022-04-23] MEDS: ONDANSETRON HCL 4 MG TABLET PO PRN (06:11)
[2022-04-23] MEDS: NICOTINE POLACRILEX 2 MG LOZENGE PO PRN (06:11)
[2022-04-23] MEDS: FERROUS FUMARATE PO SCH (07:59)
[2022-04-23] MEDS: LITHIUM CARBONATE 300 MG ER TABLET PO SCH (07:59)
[2022-04-23] MEDS: NORETHINDRONE PO SCH (07:59)
[2022-04-23] MEDS: PROPRANOLOL HCL 20 MG TABLET PO SCH (07:59)
[2022-04-23] MEDS: ETHINYL ESTRADIOL PO SCH (07:59)
[2022-04-23] MEDS: DULoxetine HCL 60 MG CAPSULE PO SCH (08:00)
[2022-04-23] MEDS: OLANZapine 10 MG TABLET PO SCH (08:00)
[2022-04-23] MEDS: LamoTRIgine 100 MG TABLET PO SCH (08:00)
[2022-04-23] MEDS: BUPRENORPHINE HCL/NALOXONE HCL 8-2 MG SUBLINGUAL TABLET SL SCH (08:00)
[2022-04-23] MEDS: GABAPENTIN 300 MG CAPSULE PO SCH (08:01)
[2022-04-23 08:03] VITALS: BP 110/73
[2022-04-23] MEDS: LACTULOSE 20 GM/30 ML SOLUTION UDCUP PO SCH (08:04)
[2022-04-23] MEDS: BACITRACIN 28 GM OINTMENT TP SCH (08:13)
[2022-04-23] MEDS ORDERED: DULO-113 PO (10:57)
[2022-04-23] MEDS ORDERED: LAMO100 PO (10:57)
[2022-04-23] MEDS ORDERED: LITH300CRT PO (10:57)
[2022-04-23] MEDS ORDERED: PROP20TA96 PO (10:57)
[2022-04-23] MEDS ORDERED: GABA-1181 PO (10:57)
[2022-04-23] MEDS ORDERED: OLAN10 PO (10:57)
== END 2022-04-23 08:15 | disposition home or self-care (01) | DRG 753 ==
LOC: B3A 06:45
PROVIDERS: ADMIT Psychiatry & Neurology Child & Adolescent Psychiatry; ATTEND Psychiatry & Neurology Child & Adolescent Psychiatry
DX: F31.4 Bipolar disorder, current episode depressed, severe, without psychotic features (principal); D64.9 Anemia, unspecified; E11.9 Type 2 diabetes mellitus without complications; E78.5 Hyperlipidemia, unspecified; E66.3 Overweight; F10.10 Alcohol abuse, uncomplicated; Z20.822 Contact with and (suspected) exposure to COVID-19; K59.00 Constipation, unspecified; R60.0 Localized edema; Y90.9 Presence of alcohol in blood, level not specified; I10 Essential (primary) hypertension; F19.10 Other psychoactive substance abuse, uncomplicated; F41.9 Anxiety disorder, unspecified; Z88.0 Allergy status to penicillin; Z88.1 Allergy status to other antibiotic agents; Z59.00 Homelessness unspecified; Z68.33 Body mass index [BMI] 33.0-33.9, adult
CPT/HCPCS: 80053; 80061; 80178; 80307; 81003; 82140; 83036; 83735; 84100; 84436; 84439; 84443; 84702; 84703; 85025; 87081; 93970; G0480; J1200; J1630; J3230; Q0162; Q9967

== ENCOUNTER 2022-08-14 17:26 | Inpatient (IN) | payer MEDICAID ==
[~2022-08-14] VITALS: Ht 165.1 cm; Wt 82.0 kg
[~2022-08-14 17:26] MED LIST changes: -AMLO-258 PO; -DIVA-80 PO; +DULO-113 PO; +GABA-1181 PO; -GABA-1216 PO; +LAMO100 PO; +LITH300CRT PO; -MELA5TAB40 PO; -NALT50TA PO; +OLAN10 PO; -OMEG-108 PO; +PROP20TA96 PO; -QUET100T34 PO
[2022-08-14 18:21] LABS: GLUCOMETER DEV NAME(LOC) POC.BV
[2022-08-14] MEDS ORDERED: INFLUENZA VIRUS VACCINE QVS 2022-23 (6MO+)/PF 60 MCG/0.5 ML SYRINGE IM. ONE (19:15)
[2022-08-14] MEDS: LORazepam 2 MG TABLET PO PRN (19:52)
[2022-08-14] MEDS: ZOLPIDEM TARTRATE 10 MG TABLET PO PRN (20:28)
[2022-08-14 21:38] VITALS: BP 136/84
[2022-08-15 01:42] VITALS: BP 141/87
[2022-08-15] MEDS: LORazepam 2 MG TABLET PO PRN ×5 (01:45→23:19)
[2022-08-15 07:03] LABS: BASOPHILS % (AUTO) 1.1 % (0.0-2.0); EOSINOPHILS % (AUTO) 3.5 % (1.0-6.0); HEMATOCRIT 37.8 % (36-46); HEMOGLOBIN 13.1 g/dL (12.0-16.0); LYMPHOCYTES # (AUTO) 2.1 K/uL (1.0-4.8); LYMPHOCYTES % (AUTO) 34.2 % (22.0-44.0); MEAN CORPUSCULAR HEMOGLOBIN 31.9 pg (26.0-34.0); MEAN CORPUSCULAR HGB CONC 34.7 G/dL (31.0-37.0); MEAN CORPUSCULAR VOLUME 92 fL (80-100); MONOCYTES # (AUTO) 0.4 K/uL (0.1-1.0); MONOCYTES % (AUTO) 6.4 % (2.0-9.0); NEUTROPHILS # (AUTO) 3.4 K/uL (1.8-7.7); NEUTROPHILS % (AUTO) 54.8 % (40.0-70.0); PLATELET COUNT (AUTO) 292 K/uL (150-450); RED CELL DISTRIBUTION WIDTH 14.2 % (11.5-14.5)
[2022-08-15 07:36] LABS: HEMOGLOBIN A1C 5.8 % (3.8-5.6)
[2022-08-15 07:42] LABS: ALANINE AMINOTRANSFERASE 24 U/L (12-78); ALBUMIN 3.4 g/dL (3.4-5.0); ALKALINE PHOSPHATASE 55 U/L (46-116); ANION GAP 10 mmol/L (8-16); ASPARTATE AMINOTRANSFERASE 19 U/L (15-37); BILIRUBIN,TOTAL 0.9 mg/dL (0.1-1.0); CALCIUM, TOTAL 8.5 mg/dL (8.8-10.5); CARBON DIOXIDE 24 mmol/L (22-29); CHLORIDE 103 mmol/L (98-107); CHOLESTEROL 149 mg/dL (131-200); CREATININE 0.79 mg/dL (0.60-1.30); FREE T4 (FREE THYROXINE) 0.76 ng/dL (0.76-1.46); GLUCOSE,RANDOM 95 mg/dL (70-110); HCG,QUANTITATIVE < 1 mIU/mL (0-6); HDL CHOLESTEROL 49 mg/dL (40-60); LDL CHOL (CALC.) 84 mg/dL (0-130); POTASSIUM 3.9 mmol/L (3.5-5.1); SODIUM SERUM 137 mmol/L (136-145); THYROID STIMULATING HORMONE 2.26 uIU/mL (0.36-3.74); TOTAL PROTEIN, SERUM 7.1 g/dL (6.4-8.2); TRIGLYCERIDES 78 mg/dL (15-150); UREA NITROGEN, BLOOD 10 mg/dL (7-18)
[2022-08-15 07:43] LABS: GLOMERULAR FILTR. RATE CALC > 60 mL/min (>60)
[2022-08-15] MEDS ORDERED: DOCUSATE SODIUM 100 MG CAPSULE PO PRN (09:30)
[2022-08-15] MEDS ORDERED: MAG HYDROX/AL HYDROX/SIMETH ES 30 ML SUSPENSION UDCUP PO PRN (09:30)
[2022-08-15] MEDS ORDERED: PETROLATUM,WHITE 28 GM JELLY TP PRN (09:30)
[2022-08-15] MEDS ORDERED: ONDANSETRON HCL 4 MG TABLET PO PRN (09:30)
[2022-08-15] MEDS ORDERED: LOPERAMIDE HCL 2 MG CAPSULE PO PRN (09:30)
[2022-08-15] MEDS ORDERED: IBUPROFEN 400 MG TABLET PO PRN (09:30)
[2022-08-15] MEDS ORDERED: NICOTINE 14 MG/24 HOUR PATCH TD PRN (09:30)
[2022-08-15] MEDS ORDERED: GuaiFENesin/D-METHORPHAN [SUGAR-FREE] 200-20MG/10 ML SYRUP UDCUP PO PRN (09:30)
[2022-08-15] MEDS ORDERED: ACETAMINOPHEN 325 MG TABLET PO PRN (09:30)
[2022-08-15] MEDS ORDERED: MAGNESIUM HYDROXIDE SUSPENSION 30 ML UDCUP PO PRN (09:30)
[2022-08-15] MEDS ORDERED: ALBUTEROL SULFATE HFA 90 MCG/PUFF 8 GM INHALER IH PRN (09:30)
[2022-08-15] MEDS ORDERED: CloNIDine HCL 0.1 MG TABLET PO PRN (09:30)
[2022-08-15 09:45] VITALS: BP 138/94
[2022-08-15] MEDS: PROPRANOLOL HCL 20 MG TABLET PO SCH ×2 (16:57→18:43)
[2022-08-15 18:26] VITALS: BP 141/100
[2022-08-15 20:00] VITALS: BP 108/70
[2022-08-15] MEDS: QUEtiapine FUMARATE 200 MG TABLET PO SCH (20:17)
[2022-08-15] MEDS: ZOLPIDEM TARTRATE 10 MG TABLET PO PRN (21:46)
[2022-08-16] MEDS: HALOPERIDOL 5 MG TABLET PO PRN (01:22)
[2022-08-16] MEDS: LORazepam 2 MG TABLET PO PRN ×3 (04:30→20:12)
[2022-08-16 07:20] LABS: APPEARANCE,URINE CLEAR (CLEAR); BILIRUBIN,URINE NEGATIVE (NEGATIVE); GLUCOSE, URINE (UA) NEGATIVE (NEGATIVE); KETONES,URINE NEGATIVE (NEGATIVE); LEUKOCYTE ESTERASE ,URINE NEGATIVE (NEGATIVE); NITRATE,URINE NEGATIVE (NEGATIVE); OCCULT BLOOD,URINE TRACE (NEGATIVE); PH,URINE 5.5 (5.0-8.0); PROTEIN,URINE NEGATIVE (NEGATIVE); SPECIFIC GRAVITIY, URINE 1.019 (1.003-1.030); UROBILINOGEN,URINE <=1.0 mg/dL (<=1.0)
[2022-08-16 07:28] LABS: AMPHET/METH SCREEN,URINE NEGATIVE (NEGATIVE); BARBITURATE SCREEN, URINE NEGATIVE (NEGATIVE); BENZODIAZEPINES SCREEN,URINE NEGATIVE (NEGATIVE); CANNABINOID SCREEN,URINE NEGATIVE (NEGATIVE); COCAINE SCREEN,URINE NEGATIVE (NEGATIVE); METHADONE SCREEN, URINE NEGATIVE (NEGATIVE); OPIATE SCREEN,URINE NEGATIVE (NEGATIVE)
[2022-08-16 07:29] LABS: PHENCYCLIDINE SCREEN,URINE NEGATIVE (NEGATIVE)
[2022-08-16 08:01] LABS: BACTERIA,URINE None Seen /HPF (None Seen); RBC,URINE 0-2 /HPF (0-2); SQUAMOUS EPITHELIAL CELL,UR Few /LPF (None Seen); WBC,URINE 0-2 /HPF (0-5)
[2022-08-16 09:13] VITALS: BP 132/77
[2022-08-16] MEDS: PROPRANOLOL HCL 20 MG TABLET PO SCH ×2 (09:41→16:13)
[2022-08-16] MEDS: VENLAFAXINE HCL 75 MG ER CAPSULE PO SCH (09:41)
[2022-08-16] MEDS: QUEtiapine FUMARATE 200 MG TABLET PO SCH (20:10)
[2022-08-16] MEDS: ZOLPIDEM TARTRATE 10 MG TABLET PO PRN (22:21)
[2022-08-17] MEDS: LORazepam 2 MG TABLET PO PRN (03:58)
[2022-08-17 08:52] VITALS: BP 106/60
[2022-08-17] MEDS: PROPRANOLOL HCL 20 MG TABLET PO SCH ×2 (09:09→16:39)
[2022-08-17] MEDS: VENLAFAXINE HCL 75 MG ER CAPSULE PO SCH (09:09)
[2022-08-17 10:50] VITALS: BP 118/75
[2022-08-17] MEDS: HALOPERIDOL 5 MG TABLET PO PRN (11:39)
[2022-08-17] MEDS ORDERED: VENL-67 PO (15:46)
[2022-08-17] MEDS ORDERED: PROP20TA18 PO (15:46)
[2022-08-17] MEDS ORDERED: QUET200T PO (15:46)
[2022-08-17 16:18] VITALS: BP 115/81
[2022-08-18] MEDS ORDERED: PROP20TA96 PO (09:14)
[2022-08-18] MEDS ORDERED: VENL-67 PO (09:14)
[2022-08-18] MEDS ORDERED: QUET200T30 PO (09:14)
== END 2022-08-17 17:42 | disposition home or self-care (01) | DRG 753 ==
LOC: B2S 17:52
PROVIDERS: ADMIT Psychiatry & Neurology Psychiatry; ATTEND Psychiatry & Neurology Psychiatry
DX: F31.4 Bipolar disorder, current episode depressed, severe, without psychotic features (principal); R45.851 Suicidal ideations; E11.9 Type 2 diabetes mellitus without complications; I10 Essential (primary) hypertension; Z91.51 Personal history of suicidal behavior; F10.10 Alcohol abuse, uncomplicated; Z79.899 Other long term (current) drug therapy; Z88.8 Allergy status to other drugs, medicaments and biological substances
CPT/HCPCS: 80053; 80061; 80307; 81001; 83036; 84439; 84443; 84702; 85025